=== PATIENT | female | born 1945 | race Caucasian/White ===

== ENCOUNTER 2017-02-01 16:27 | Inpatient (IN) | payer OTHER ==
[~2017-02-01] VITALS: Ht 167.6 cm; Wt 95.5 kg
[~2017-02-01 16:27] MED LIST: AMLO-114 PO; ASPI-232 PO; CALC500C70 PO; CLOP1TAB15 PO; HYDR25TA4 PO; INSUINJ4 SQ; LABE1TAB28 PO; LISI40TA PO; LORA0.5T12 PO; NVLGI SC; PANT1TAB48 PO; ROSU20TA PO
[2017-02-01] MEDS ORDERED: DAPTOmycin IV 500 MG in SODIUM CHLORIDE 0.9% 50ML 50 ML IV STA (17:11)
[2017-02-01] MEDS ORDERED: SODIUM CHLORIDE 0.9% 1000ML 1,000 ML IV STA ×2 (17:11)
[2017-02-01] MEDS ORDERED: PIPERACILLIN/TAZOBACTAM 4.5 GM/100ML D5W IV STA (17:11)
[2017-02-01] MEDS ORDERED: VANCOMYCIN INJ 2,000 MG in SODIUM CHLORIDE 0.9% 500ML 500 ML IV STA (17:21)
--- NOTE | 2017-02-01 17:32 | DIAGNOSTIC IMAGING REPORT ---
CHEST ONE VIEW PORTABLE CLINICAL HISTORY: EVALUATE WEAKNESS dyspnea COMPARISON STUDY: None FINDINGS: Consolidative infiltrate versus mass right midlung. Right lung base and right apex are considered clear. Left lung is considered clear. IMPRESSION: Consolidative infiltrate versus mass right midlung. Electronically signed by: aFm Mao M.D. 02/01/2017 5:30 PM Dictated Date/Time: 02/01/2017 5:30 PM
[2017-02-01 17:37] LABS: BASO % 0.2 %; BASO ABS # 0.03 K/uL (0-0.2); COMPLETE YES; HEMATOCRIT 29.4 % (37-47); IG% 0.3 %; LYMPH % 4.7 %; LYMPH ABS # 0.58 K/uL (1.2-3.4); MEAN CELL VOLUME 86.7 fL (80-100); MEAN CORPUSCULAR HEMOGLOBIN 28.9 pg (25-34); MEAN CORPUSCULAR HGB CONC 33.3 g/dl (32-36); MEAN PLATELET VOLUME 10.6 fL (7.4-10.4); MONO % 10.2 %; NEUT % 84.6 %; PLATELET COUNT 205 K/uL (130-400); RED BLOOD COUNT 3.39 M/uL (4.2-5.4); WHITE BLOOD COUNT 12.39 K/uL (4.8-10.8)
[2017-02-01 17:44] LABS: INR 1.1 (0.9-1.1); PARTIAL THROMBOPLASTIN RATIO 1.3; PROTHROMBIN TIME (PATIENT) 11.6 SECONDS (9.0-12.0)
[2017-02-01] MEDS ORDERED: INSDGI SC (18:04)
[2017-02-01] MEDS ORDERED: NVLG PO (18:04)
[2017-02-01] MEDS ORDERED: ACET-1311 PO (18:04)
[2017-02-01] MEDS ORDERED: NVLG SQ (18:04)
[2017-02-01 18:05] LABS: URINE APPEARANCE CLOUDY (CLEAR); URINE BILIRUBIN NEG (NEG); URINE COLOR DK YELLOW; URINE EPITHELIAL CELL AUTO 20-30 /lpf (0-5); URINE NITRITE NEG (NEG); URINE SPECIFIC GRAVITY 1.021 (1.000-1.030); UROBILINOGEN NEG (NEG)
[2017-02-01 18:10] LABS: ALT/SGPT 30 U/L (12-78); BLOOD UREA NITROGEN 37 mg/dl (7-18); BUN/CREATININE RATIO 15.9 (10-20); CALCIUM 8.9 mg/dl (8.5-10.1); CARBON DIOXIDE 24 mmol/L (21-32); CHLORIDE 98 mmol/L (98-107); GLUCOSE 214 mg/dl (70-99); MAGNESIUM 1.7 mg/dl (1.8-2.4); POTASSIUM 3.5 mmol/L (3.5-5.1); SODIUM 133 mmol/L (136-145)
[2017-02-01 18:13] LABS: MANUAL MICROSCOPIC REQUIRED? NO; REVIEW REQ? YES
[2017-02-01 18:20] LABS: ALKALINE PHOSPHATASE 98 U/L (45-117); AST/SGOT 25 U/L (15-37); THYROID STIMULATING HORMONE 0.191 uIu/ml (0.300-4.500)
--- NOTE | 2017-02-01 18:34 | DIAGNOSTIC IMAGING REPORT ---
ABDOMEN AND PELVIS CT WITHOUT CONTRAST CT DOSE: 1602.53 mGy.cm HISTORY: Left flank pain left groin pain, urinary symptoms TECHNIQUE: Multiaxial CT images of the abdomen and pelvis were performed without the use of intravenous and oral contrast according to the standard department stone protocol. COMPARISON STUDY: None. FINDINGS: Lung bases are clear. Liver spleen and pancreas appear uniform. Gallbladder is negative for distention. There are several calcified upper abdominal varices. The kidneys demonstrate a 3 mm nonobstructing calcification in the right. There is no evidence for an obstructing urinary tract calculus. There is atherosclerotic change abdominal aorta as well as iliac vasculature. A significant aneurysm is not appreciated. Bladder is midline. Bowel pattern is nonobstructive throughout. The appendix is normal. IMPRESSION: No acute process of the abdomen or pelvis. Electronically signed by: Fam Mao M.D. 02/01/2017 6:33 PM Dictated Date/Time: 02/01/2017 6:29 PM
[2017-02-01] MEDS ORDERED: LEVAQUIN 750MG / 150ML D5W IV STA (18:51)
[2017-02-01] MEDS ORDERED: DILTIAZEM BOLUS / DRIP IV STA (18:56)
[2017-02-01] MEDS ORDERED: DILTIAZEM HCL 5 MG/ML 5 ML VIAL IV STA (18:56)
[2017-02-01] MEDS ORDERED: DILTIAZEM HCL INJ 125 MG in DEXTROSE 5% 100ML IV PRN (19:15)
[2017-02-01] MEDS ORDERED: LPT40 PO (20:10)
[2017-02-01] MEDS ORDERED: CALC-585 PO (20:13)
[2017-02-01] MEDS ORDERED: DEXTROSE 50% 50 ML SYR IV PRN (20:30)
[2017-02-01] MEDS ORDERED: GLUCOSE 40% GEL 15 GM TUBE PO PRN (20:30)
[2017-02-01] MEDS ORDERED: GLUCOSE 10 TABS/TUBE PO PRN (20:30)
[2017-02-01] MEDS ORDERED: GLUCAGON FOR INJ 1 MG VIAL SQ PRN (20:30)
--- NOTE | 2017-02-01 20:39 | EMERGENCY ROOM VISIT NOTE ---
History Report prepared by Ilya: Nam Wiggins Under the Supervision of: Dr. Brandyn Higginbotham M.D. First contact with patient: 16:54 Chief Complaint: FEVER Stated Complaint: COLD AT TIMES History of Present Illness The patient is a 71 year old female who presents to the Emergency Room with complaints of a persistent illness that started 4 days ago. The patient says that she has had intermittent chills with a fever. She adds that she has had a little cough, and some pain in her left leg, which she rates as a 5 out of 10 in severity. The patient states that she has not been urinating as much as she should be, especially since she has been drinking a lot of water. 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 She had stents placed in her leg. The patient took 2 Aleve a few days ago. Pt denies LOC , headache, diaphoresis, visual changes, neck pain, chest pain, breathing difficulties, nausea, vomiting, abdominal pain, melena, hematochezia, numbness, weakness, lymphadenopathy, rash, or other complaints. Source of History: patient, family Onset: 4 days ago Position: other (global - illness) Timing: other (persistent) Associated Symptoms: + fevers, + chills, + cough, + back pain (low), + urinary symptoms (decreased urinary frequency) Note: Associated symptoms: Left leg pain. Review of Systems See HPI for pertinent positives and negatives. A total of ten systems were reviewed and were otherwise negative. Past Medical & Surgical Medical Problems: (1) Atrial fibrillation (2) Diabetes (3) Hypertension (4) Pneumonia Family History Diabetes mellitus FHx: cancer FHx: heart disease Hypertension Social History Smoking Status: Former Smoker Marital Status: Housing Status: lives with family Current/Historical Medications Scheduled Amlodipine (Norvasc), 10 MG PO DAILY Aspirin (Aspir-81), 1 TAB PO DAILY Atorvastatin (Atorvastatin Calcium), 40 MG PO DAILY Calcium Carbonate-Cholecalcife (Calcium 600 with Vitamin 600-400 mg-Unit), 1 TAB PO BID Clopidogrel (Plavix), 75 MG PO DAILY Hydrochlorothiazide (Hctz), 25 MG PO DAILY Insulin Aspart (Novolog), 10 UNITS SQ QDB Insulin Aspart (Novolog), UNITS PO UD Insulin Glargine (Lantus), 50 UNITS SC HS Labetalol (Normodyne), 200 MG PO BID Lisinopril (Zestril), 40 MG PO DAILY Pantoprazole (Protonix), 40 MG PO DAILY Scheduled PRN Acetaminophen (Tylenol), 325 MG PO Q6 PRN for Pain Allergies Coded Allergies: No Known Allergies (Unverified , 02/01/17) Physical Exam Vital Signs Date Time Temp Pulse Resp B/P (MAP) Pulse Ox O2 Delivery O2 Flow Rate FiO2 02/01/17 20:08 105 18 98 Nasal Cannula 2.0 02/01/17 19:22 105 16 116/61 95 Nasal Cannula 2.0 02/01/17 19:08 96 Nasal Cannula 2.0 02/01/17 18:54 136 02/01/17 18:48 153 02/01/17 17:55 92 02/01/17 17:54 92 16 142/53 91 Room Air 02/01/17 17:34 93 Room Air 02/01/17 16:30 39.5 96 20 133/65 91 Physical Exam GENERAL: Awake, alert, well-appearing, in no distress HENT: Normocephalic, atraumatic. Oropharynx unremarkable. EYES: Normal conjunctiva. Sclera non-icteric. NECK: Supple. No nuchal rigidity. FROM. No JVD. RESPIRATORY: Clear to auscultation. CARDIAC: Regular rate, normal rhythm. Extremities warm and well perfused. Pulses equal. ABDOMEN: Soft, non-distended. No tenderness to palpation. No rebound or guarding. No masses. RECTAL: Deferred. MUSCULOSKELETAL: Chest examination reveals no tenderness. The back is symmetrical on inspection without obvious abnormality. There is no CVA tenderness to palpation. No joint edema. LOWER EXTREMITIES: Left groin tenderness, no induration or swelling. Calves are equal size bilaterally and non-tender. No edema. No discoloration. NEURO: Normal sensorium. No sensory or motor deficits noted. SKIN: No rash or jaundice noted. Medical Decision & Procedures ER Provider Diagnostic Interpretation: Radiology results as stated below per my review and radiologist interpretation: CHEST ONE VIEW PORTABLE CLINICAL HISTORY: EVALUATE WEAKNESS dyspnea COMPARISON STUDY: None FINDINGS: Consolidative infiltrate versus mass right midlung. Right lung base and right apex are considered clear. Left lung is considered clear. IMPRESSION: Consolidative infiltrate versus mass right midlung. Electronically signed by: Fam Mao M.D. 02/01/2017 5:30 PM Dictated Date/Time: 02/01/2017 5:30 PM [address] AND PELVIS CT WITHOUT CONTRAST CT DOSE: 1602.53 mGy.cm HISTORY: Left flank pain left groin pain, urinary symptoms TECHNIQUE: Multiaxial CT images of the abdomen and pelvis were performed without the use of intravenous and oral contrast according to the standard department stone protocol. COMPARISON STUDY: None. FINDINGS: Lung bases are clear. Liver spleen and pancreas appear uniform. Gallbladder is negative for distention. There are several calcified upper abdominal varices. The kidneys demonstrate a 3 mm nonobstructing calcification in the right. There is no evidence for an obstructing urinary tract calculus. There is atherosclerotic change abdominal aorta as well as iliac vasculature. A significant aneurysm is not appreciated. Bladder is midline. Bowel pattern is nonobstructive throughout. The appendix is normal. IMPRESSION: No acute process of the abdomen or pelvis. Electronically signed by: Fam Mao M.D. 02/01/2017 6:33 PM Dictated Date/Time: 02/01/2017 6:29 PM Laboratory Results 02/01/17 17:20 Red Blood Count 3.39, Mean Corpuscular Volume 86.7, Mean Corpuscular Hemoglobin 28.9, Mean Corpuscular Hemoglobin Concent 33.3, Mean Platelet Volume 10.6, Neutrophils (%) (Auto) 84.6, Lymphocytes (%) (Auto) 4.7, Monocytes (%) (Auto) 10.2, Eosinophils (%) (Auto) 0.0, Basophils (%) (Auto) 0.2, Neutrophils # (Auto ) 10.48, Lymphocytes # (Auto) 0.58, Monocytes # (Auto) 1.26, Eosinophils # (Auto ) 0.00, Basophils # (Auto) 0.03 02/01/17 17:20 Test 02/01/17 17:20 02/01/17 17:24 02/01/17 17:40 White Blood Count 12.39 K/uL (4.8-10.8) Red Blood Count 3.39 M/uL (4.2-5.4) Hemoglobin 9.8 g/dL (12.0-16.0) Hematocrit 29.4 % (37-47) Mean Corpuscular Volume 86.7 fL (80-100) Mean Corpuscular Hemoglobin 28.9 pg (25-34) Mean Corpuscular Hemoglobin Concent 33.3 g/dl (32-36) Platelet Count 205 K/uL (130-400) Mean Platelet Volume 10.6 fL (7.4-10.4) Neutrophils (%) (Auto) 84.6 % Lymphocytes (%) (Auto) 4.7 % Monocytes (%) (Auto) 10.2 % Eosinophils (%) (Auto) 0.0 % Basophils (%) (Auto) 0.2 % Neutrophils # (Auto) 10.48 K/uL (1.4-6.5) Lymphocytes # (Auto) 0.58 K/uL (1.2-3.4) Monocytes # (Auto) 1.26 K/uL (0.11-0.59) Eosinophils # (Auto) 0.00 K/uL (0-0.5) Basophils # (Auto) 0.03 K/uL (0-0.2) RDW Standard Deviation 45.5 fL (36.4-46.3) RDW Coefficient of Variation 14.3 % (11.5-14.5) Immature Granulocyte % (Auto) 0.3 % Immature Granulocyte # (Auto) 0.04 K/uL (0.00-0.02) Prothrombin Time 11.6 SECONDS (9.0-12.0) Prothromb Time International Ratio 1.1 (0.9-1.1) Activated Partial Thromboplast Time 33.6 SECONDS (21.0-31.0) Partial Thromboplastin Ratio 1.3 Anion Gap 11.0 mmol/L (3-11) Est Creatinine Clear Calc Drug Dose 25.9 ml/min Estimated GFR () 23.8 Estimated GFR (Non- 20.5 BUN/Creatinine Ratio 15.9 (10-20) Calcium Level 8.9 mg/dl (8.5-10.1) Magnesium Level 1.7 mg/dl (1.8-2.4) Total Bilirubin 1.6 mg/dl (0.2-1) Direct Bilirubin 0.6 mg/dl (0-0.2) Aspartate Amino Transf (AST/SGOT) 25 U/L (15-37) Alanine Aminotransferase (ALT/SGPT) 30 U/L (12-78) Alkaline Phosphatase 98 U/L (45-117) Troponin I < 0.015 ng/ml (0-0.045) Total Protein 7.0 gm/dl (6.4-8.2) Albumin 3.1 gm/dl (3.4-5.0) Lipase 124 U/L (73-393) Thyroid Stimulating Hormone (TSH) 0.191 uIu/ml (0.300-4.500) Bedside Lactic Acid Venous 0.76 mmol/L (0.90-1.70) Urine Color DK YELLOW Urine Appearance CLOUDY (CLEAR) Urine pH 5.0 (4.5-7.5) Urine Specific [place] 1.021 (1.000-1.030) Urine Protein 2+ (NEG) Urine Glucose (UA) NEG (NEG) Urine Ketones NEG (NEG) Urine Occult Blood 2+ (NEG) Urine Nitrite NEG (NEG) Urine Bilirubin NEG (NEG) Urine Urobilinogen NEG (NEG) Urine Leukocyte Esterase NEG (NEG) Urine WBC (Auto) 1-5 /hpf (0-5) Urine RBC (Auto) 0-4 /hpf (0-4) Urine Hyaline Casts (Auto) 5-10 /lpf (0-5) Urine Epithelial Cells (Auto) 20-30 /lpf (0-5) Urine Bacteria (Auto) NEG (NEG) Urine Yeast (Auto) (NONE PRSENT) Laboratory results reviewed by me Medications Administered Medications (Trade) Dose Ordered Sig/Dayron Route Start Time Stop Time Status Last Admin Dose Admin Sodium Chloride 1,000 ml @ 125 mls/hr Q8H STAT IV 02/01/17 17:11 02/02/17 01:10 02/01/17 17:30 125 MLS/HR Sodium Chloride 1,000 ml @ 999 mls/hr Q1H1M STAT IV 02/01/17 17:11 02/01/17 18:11 DC 02/01/17 17:29 999 MLS/HR Piperacillin Sod/ Tazobactam Sod (Zosyn Iv) 4.5 gm NOW STAT IV 02/01/17 17:11 02/01/17 17:14 DC 02/01/17 17:31 4.5 GM Vancomycin HCl 2000 mg/Sodium Chloride 540 ml @ 200 mls/hr ONE STAT IV 02/01/17 17:21 02/01/17 20:02 DC 02/01/17 17:21 200 MLS/HR Diltiazem HCl (Cardizem Inj) 10 mg NOW STAT IV 02/01/17 18:56 02/01/17 18:58 DC 02/01/17 19:16 10 MG Diltiazem HCl (Cardizem Bolus / Drip) 1 ea NOW STAT IV 02/01/17 18:56 02/01/17 18:58 DC 02/01/17 18:56 1 EA Diltiazem HCl 125 mg/Dextrose 125 ml @ 0 mls/hr Q0M PRN IV 02/01/17 19:15 03/03/17 19:14 02/01/17 19:19 5 MLS/HR ECG Indication: other (fever) Rate (beats per minute): 96 Rhythm: sinus rhythm (with sinus arrhythmia) Findings: no acute ischemic change, other (nonspecific ST segments) Change: Second ECG: Atrial fibrillation with RVR with a rate of 138 bpm, lateral q waves. When compared to prior, atrial fibrillation is new. ED Course 1711: Ordered Daptomycin 500 mg/Sodium Chloride 60 ml @ 100 mls/hr IV, Zosyn IV 4.5 gm IV, NSS 1000 ml @ 999 mls/hr IV, NSS 1000 ml @ 125 mls/hr IV. 1716: The patient was evaluated in room B4B. A complete history and physical exam was performed. 1721: Ordered Vancomycin HCl 2000 mg/Sodium Chloride 540 ml @ 200 mls/hr IV. 1850: The monitor tech notified me that the patient just went into rapid atrial fibrillation. 1851: Ordered Levaquin / D5W 750 mg IV. 1852: I reevaluated the patient and she is resting. The patient verbally expressed understanding and agreement of the treatment plan. The patient will be evaluated for further treatment. 185: Ordered Cardizem Bolus / Drip 1 ea IV, Cardizem Inj 10 mg IV. 1912: I discussed the patient with Nancy Mac - she will evaluate the patient for further treatment. 1926: I reevaluated the patient after she was given Cardizem. Her heart rate has improved and she is stable. Medical Decision Medication Reconciliation: I attest that I have personally reviewed the patient' s current medication list Blood pressure screening: Patient was found to have an elevated blood pressure and was referred to their primary doctor for recheck and further treatment. Triage Nursing notes reviewed. The patient's presentation and history were concerning for fever. Etiologies such as pneumonia, urinary tract infection, sepsis, bacteremia, meningitis, viral syndrome, as well as others were entertained. The patient was evaluated. She was febrile. She complained of some right groin pain that there was no obvious abnormalities on physical examination. She also noted some urinary issues and had some flulike symptoms. Chest x-ray was concerning for right-sided infiltrate. The patient had a 12,000 white count. Her creatinine was elevated from baseline to 2.3. This was concerning for acute kidney injury. She had a mildly low TSH and her bilirubin functions mildly elevated. The patient underwent CT imaging did not reveal any findings in the abdomen or pelvis. She was given Zosyn and daptomycin. The patient was found to have developed a rapid atrial fibrillation. She was also requiring supplemental oxygen with a pulse oximetry of 80% on room air. The patient responded well to supplemental oxygen. She was given a dose of IV Levaquin and Cardizem. She was given 10 mg Cardizem and placed on a drip. This did achieve rate control. The patient was doing quite well given the findings. She will need admission to the hospital. [facility] The patient was evaluated in the Emergency Room for further management. Consults Time Called: 1907 Consulting Physician: Nancy Mac Returned Call: 1912 I discussed the patient with Nancy Mac - she will evaluate the patient for further treatment. Impression Primary Impression: Pneumonia involving right lung Additional Impressions: KEILA (acute kidney injury) Rapid atrial fibrillation Fever Critical Care I have personally spent greater than 30 minutes of critical care time in the direct management of this patient. This includes bedside care, interpretation of diagnostic studies, and testing, discussion with consultants, patient, and family members, and other required patient management activities. This 30 minutes is in excess of all separately billable procedures. Scribe Attestation The scribe's documentation has been prepared under my direction and personally reviewed by me in its entirety. I confirm that the note above accurately reflects all work, treatment, procedures, and medical decision making performed by me. Departure Information Dispostion Being Evaluated By Hospitalist Referrals Jose C Roth D.O. (PCP) Patient Instructions My [facility] Problem Qualifiers
[2017-02-01 20:59] VITALS: BP 121/75; PULSE 120; TEMP 37.3; O2SAT 93; BMI 34.8
[2017-02-01] MEDS ORDERED: HEPARIN IV BOLUS 6,000 UNIT in SYRINGE 0 ML IV ONE (21:30)
[2017-02-01] MEDS: ACETAMINOPHEN 325 MG TAB PO PRN (21:50)
[2017-02-01] MEDS: MAGNESIUM SULFATE 1GM / D5W 1 GM in PREMIXED IN D5W 100 ML IV SCH ×2 (21:51→22:30)
[2017-02-01] MEDS: CALCIUM 600MG + VIT D 400 IU TAB PO SCH (21:51)
[2017-02-01] MEDS: LABETALOL HCL 200 MG TAB PO SCH (21:52)
--- NOTE | 2017-02-01 21:52 | History and Physical ---
History & Physical Date & Time of Service: Feb 01, 2017 at 20:18 Chief Complaint: Cold At Times Primary Care Physician: Jose C Roth D.O. History of Present Illness Source: patient, partner, clinic records 71 year old female with PMH of DM type 2, CKD stage 3, HTN, PVD, Carotid Stenosis presents to the Emergency Room with complaints of fever, chills that started about 4 days ago. Pt said that she has been feeling weak with no energy for the past few days. She said that she has been having a dry cough. she said that she has been having SOB on exertion. She also had some pain in her left leg where she had MRSA in her artery that is resolved now. She notice her urinary output seems to be low, especially since she has been drinking a lot of water. She denies any sick contact or any recent travelling. She denies any chest pain, palpitation, headache, diaphoresis , visual changes, neck pain, nausea, vomiting, abdominal pain, melena, hematochezia, numbness, weakness, lymphadenopathy, rash. She went to Atrial Fibrillation in the ER with HR in the 150 and was started on Cardizem drip. Past Medical/Surgical History Medical Problems: (1) Diabetes Status: Chronic (2) Hypertension Status: Chronic Family History Diabetes mellitus FHx: cancer FHx: heart disease Hypertension Social History Smoking Status: Former Smoker Alcohol Use: none Drug Use: none Marital Status: Immunizations History of Pneumococcal: Yes Multi-Drug Resistant Organisms History of MDRO: No Allergies Coded Allergies: No Known Allergies (Unverified , 02/01/17) Home Medications Scheduled Amlodipine (Norvasc), 10 MG PO DAILY Aspirin (Aspir-81), 1 TAB PO DAILY Atorvastatin (Atorvastatin Calcium), 40 MG PO DAILY Calcium Carbonate-Cholecalcife (Calcium 600 with Vitamin 600-400 mg-Unit), 1 TAB PO BID Clopidogrel (Plavix), 75 MG PO DAILY Hydrochlorothiazide (Hctz), 25 MG PO DAILY Insulin Aspart (Novolog), 10 UNITS SQ QDB Insulin Aspart (Novolog), UNITS PO UD Insulin Glargine (Lantus), 50 UNITS SC HS Labetalol (Normodyne), 200 MG PO BID Lisinopril (Zestril), 40 MG PO DAILY Pantoprazole (Protonix), 40 MG PO DAILY Scheduled PRN Acetaminophen (Tylenol), 325 MG PO Q6 PRN for Pain Review of Systems Constitutional: + fever, + chills, + weakness, + fatigue Eyes: No worsening of vision, No eye pain, No discharge ENT: No hearing loss, No nasal symptoms, No sore throat Respiratory: + cough, + dyspnea on exertion, No sputum, No wheezing Cardiovascular: No chest pain, No orthopnea, No palpitations Abdomen: No pain, No nausea, No vomiting, No diarrhea Musculoskeletal: No swelling, No calf pain Genitourinary - Female: No dysuria, No urinary frequency, No hematuria Neurologic: + weakness, No memory loss, No paralysis Psychiatric: No substance abuse Endocrine: + fatigue Hematologic / Lymphatic: No swollen lymph nodes, No night sweats Integumentary: No rash, No itch Physical Exam Vital Signs Date Time Temp Pulse Resp B/P (MAP) Pulse Ox O2 Delivery O2 Flow Rate FiO2 02/01/17 20:08 105 18 98 Nasal Cannula 2.0 02/01/17 19:22 105 16 116/61 95 Nasal Cannula 2.0 02/01/17 19:08 96 Nasal Cannula 2.0 02/01/17 18:54 136 02/01/17 18:48 153 02/01/17 17:55 92 02/01/17 17:54 92 16 142/53 91 Room Air 02/01/17 17:34 93 Room Air 02/01/17 16:30 39.5 96 20 133/65 91 General Appearance: WD/WN, no apparent distress Head: normocephalic, atraumatic Eyes: normal inspection, PERRL, EOMI ENT: normal ENT inspection, hearing grossly normal Neck: no JVD, + pertinent finding (B/L carotid Bruit) Respiratory/Chest: chest non-tender, no respiratory distress, no accessory muscle use Cardiovascular: no JVD, + irregularly irregular Abdomen/GI: normal bowel sounds, non tender, soft Back: no CVA tenderness, normal range of motion Extremities/Musculoskelatal: no calf tenderness Neurologic/Psych: alert, normal mood/affect, oriented x 3 Skin: warm/dry, no rash Diagnostics Laboratory Results Results Past 24 Hours Test 02/01/17 17:20 02/01/17 17:24 02/01/17 17:40 Range/Units White Blood Count 12.39 4.8-10.8 K/uL Red Blood Count 3.39 4.2-5.4 M/uL Hemoglobin 9.8 12.0-16.0 g/dL Hematocrit 29.4 37-47 % Mean Corpuscular Volume 86.7 80-100 fL Mean Corpuscular Hemoglobin 28.9 25-34 pg Mean Corpuscular Hemoglobin Concent 33.3 32-36 g/dl Platelet Count 205 130-400 K/uL Mean Platelet Volume 10.6 7.4-10.4 fL Neutrophils (%) (Auto) 84.6 % Lymphocytes (%) (Auto) 4.7 % Monocytes (%) (Auto) 10.2 % Eosinophils (%) (Auto) 0.0 % Basophils (%) (Auto) 0.2 % Neutrophils # (Auto) 10.48 1.4-6.5 K/uL Lymphocytes # (Auto) 0.58 1.2-3.4 K/uL Monocytes # (Auto) 1.26 0.11-0.59 K/uL Eosinophils # (Auto) 0.00 0-0.5 K/uL Basophils # (Auto) 0.03 0-0.2 K/uL RDW Standard Deviation 45.5 36.4-46.3 fL RDW Coefficient of Variation 14.3 11.5-14.5 % Immature Granulocyte % (Auto) 0.3 % Immature Granulocyte # (Auto) 0.04 0.00-0.02 K/uL Prothrombin Time 11.6 9.0-12.0 SECONDS Prothromb Time International Ratio 1.1 0.9-1.1 Activated Partial Thromboplast Time 33.6 21.0-31.0 SECONDS Partial Thromboplastin Ratio 1.3 Sodium Level 133 136-145 mmol/L Potassium Level 3.5 3.5-5.1 mmol/L Chloride Level 98 98-107 mmol/L Carbon Dioxide Level 24 21-32 mmol/L Anion Gap 11.0 3-11 mmol/L Blood Urea Nitrogen 37 7-18 mg/dl Creatinine 2.30 0.60-1.20 mg/dl Est Creatinine Clear Calc Drug Dose 25.9 ml/min Estimated GFR () 23.8 Estimated GFR (Non- 20.5 BUN/Creatinine Ratio 15.9 10-20 Random Glucose 214 70-99 mg/dl Calcium Level 8.9 8.5-10.1 mg/dl Magnesium Level 1.7 1.8-2.4 mg/dl Total Bilirubin 1.6 0.2-1 mg/dl Direct Bilirubin 0.6 0-0.2 mg/dl Aspartate Amino Transf (AST/SGOT) 25 15-37 U/L Alanine Aminotransferase (ALT/SGPT) 30 12-78 U/L Alkaline Phosphatase 98 45-117 U/L Troponin I < 0.015 0-0.045 ng/ml Total Protein 7.0 6.4-8.2 gm/dl Albumin 3.1 3.4-5.0 gm/dl Lipase 124 73-393 U/L Thyroid Stimulating Hormone (TSH) 0.191 0.300-4.500 uIu/ml Bedside Lactic Acid Venous 0.76 0.90-1.70 mmol/L Urine Color DK YELLOW Urine Appearance CLOUDY CLEAR Urine pH 5.0 4.5-7.5 Urine Specific [place] 1.021 1.000-1.030 Urine Protein 2+ NEG Urine Glucose (UA) NEG NEG Urine Ketones NEG NEG Urine Occult Blood 2+ NEG Urine Nitrite NEG NEG Urine Bilirubin NEG NEG Urine Urobilinogen NEG NEG Urine Leukocyte Esterase NEG NEG Urine WBC (Auto) 1-5 0-5 /hpf Urine RBC (Auto) 0-4 0-4 /hpf Urine Hyaline Casts (Auto) 5-10 0-5 /lpf Urine Epithelial Cells (Auto) 20-30 0-5 /lpf Urine Bacteria (Auto) NEG NEG Urine Yeast (Auto) NONE PRSENT Microbiology Results 02/01/17 Blood Culture, Received Pending 02/01/17 Blood Culture, Received Pending 02/01/17 Urine Culture, Received Pending Diagnostic Radiology ABDOMEN AND PELVIS CT WITHOUT CONTRAST CT DOSE: 1602.53 mGy.cm HISTORY: Left flank pain left groin pain, urinary symptoms TECHNIQUE: Multiaxial CT images of the abdomen and pelvis were performed without the use of intravenous and oral contrast according to the standard department stone protocol. COMPARISON STUDY: None. FINDINGS: Lung bases are clear. Liver spleen and pancreas appear uniform. Gallbladder is negative for distention. There are several calcified upper abdominal varices. The kidneys demonstrate a 3 mm nonobstructing calcification in the right. There is no evidence for an obstructing urinary tract calculus. There is atherosclerotic change abdominal aorta as well as iliac vasculature. A significant aneurysm is not appreciated. Bladder is midline. Bowel pattern is nonobstructive throughout. The appendix is normal. IMPRESSION: No acute process of the abdomen or pelvis. Electronically signed by: Fam Mao M.D. 02/01/2017 6:33 PM Dictated Date/Time: 02/01/2017 6:29 PM CHEST ONE VIEW PORTABLE CLINICAL HISTORY: EVALUATE WEAKNESS dyspnea COMPARISON STUDY: None FINDINGS: Consolidative infiltrate versus mass right midlung. Right lung base and right apex are considered clear. Left lung is considered clear. IMPRESSION: Consolidative infiltrate versus mass right midlung. Electronically signed by: Fam Mao M.D. 02/01/2017 5:30 PM Dictated Date/Time: 02/01/2017 5:30 PM Impression Assessment and Plan NEW ONSET ATRIAL FIBRILLATION possible related to electrolytes imbalance, acute illness or thyroid disorder? Received IV Cardizem and was started on Cardizem drip CDF3BA2-ABSH score 5 (age, female, DM, HTN, PVD) Heparin drip was started 1st troponin negative Will Follow 2 more sets CM Case discussed with Cardiology Dr. Singleton who will evaluate pt in am. Will continue monitor in Telemetry Continue labetalol monitor electrolytes Nuclear stress test done on 04/27 was normal Dobutamine stress echo done on 04/27 showed: Interpretation Summary The primary indication after review was deemed appropriate and the examination was performed. Nondiagnostic dobutamine stress echocardiogram due to inability to achieve target heart rate. Nonischemic at 78% max predicted heart rate. Hypertensive BP response to dobutamine infusion. At rest, normal LV chamber size with mild concentric LVH. Normal LV systolic function without regional wall motion abnormality, EF 60-65%. Grade I diastolic dysfunction. Mild aortic valve sclerosis without stenosis, mild regurgitation. Mild mitral annular calcifications. Mild enlargement of the aortic root. PNEUMONIA CXR showed Consolidative infiltrate versus mass right midlung Received IV Vanco, Zosyn, levaquin and Dapto in the ER Will continue levaquin and Vanco for now If MRSA negative will d/c the vanco blood and urine cx pending Will need a CT chest in a few weeks for complete resolution ACUTE KEILA ON CKD STAGE 3 Creatine was 1.2 on 12/12/16 Creatine on admission 2.3 Lisinopril and HCTZ on hold Continue IVF Avoid nephrotoxic agents Will get a renal U/S if creatine worsening Continue monitor BMP ELECTROLYTES IMBALANCE Mg 1.7 Mg replaced keep Mg above 2 and K above 4. continue monitor ABNORMAL TSH Possible related to acute illness Will check Free T4 and Total T3 Repeat TSH in few weeks DM TYPE 2 HBA1C 6.5 on 12/12/16- Controlled Continue Lantus ( will decrease to 35 unit for tonight since pt is in the hospital) Insulin coverage Monitor BS HTN BP stable Hold Lisinopril and HCTZ due to KEILA Continue Norvasc 10mg monitor BP PVD CAROTID ARTERY STENOSIS Continue Plavix/ Aspirin/ Statin DYSLIPIDEMIA Continue Lipitor 40mg DVT Px on Heparin Drip CODE STATUS FULL CODE VTE Prophylaxis VTE Risk Assessment Done? Y/N: Yes Risk Level: Moderate
[2017-02-01] MEDS: INSULIN ASPART 100 UNITS/ML 3 ML PEN SC SCH (21:56)
[2017-02-01] MEDS: INSULIN GLARGINE SOLOSTAR 100 UNITS/ML 3 ML PEN SC SCH (21:57)
[2017-02-01] MEDS: HEPARIN 25,000 UNIT/500ML D5W 500 ML IV PRN (21:58)
[2017-02-01] MEDS ORDERED: SODIUM CHLORIDE 0.9% 1000ML 1,000 ML IV SCH (22:30)
[2017-02-01 23:00] VITALS: BP 132/50; PULSE 97; TEMP 38.3; O2SAT 94
[2017-02-01] MEDS ORDERED: VANCOMYCIN CONSULT ACTIVE PRN (23:00)
[2017-02-02] VITALS (12 sets, daily range): BP systolic 110–137; BP diastolic 56–72; PULSE 69–90; TEMP 36.9–37.7; O2SAT 87–97
[2017-02-02] MEDS ORDERED: LORAZEPAM 0.5 MG TAB ONE (00:20)
[2017-02-02] MEDS ORDERED: NURSING VERBAL MED ORDER ONE (00:30)
[2017-02-02 06:50] LABS: HEMATOCRIT 25.6 % (37-47); MEAN CELL VOLUME 87.1 fL (80-100); MEAN CORPUSCULAR HEMOGLOBIN 28.6 pg (25-34); MEAN CORPUSCULAR HGB CONC 32.8 g/dl (32-36); MEAN PLATELET VOLUME 9.9 fL (7.4-10.4); PLATELET COUNT 180 K/uL (130-400); RED BLOOD COUNT 2.94 M/uL (4.2-5.4); WHITE BLOOD COUNT 9.46 K/uL (4.8-10.8)
[2017-02-02 07:10] LABS: PARTIAL THROMBOPLASTIN RATIO 3.6
[2017-02-02 07:24] LABS: ALT/SGPT 29 U/L (12-78); BLOOD UREA NITROGEN 39 mg/dl (7-18); BUN/CREATININE RATIO 17.5 (10-20); CALCIUM 8.3 mg/dl (8.5-10.1); CARBON DIOXIDE 22 mmol/L (21-32); CHLORIDE 100 mmol/L (98-107); GLUCOSE 213 mg/dl (70-99); MAGNESIUM 2.3 mg/dl (1.8-2.4); POTASSIUM 3.2 mmol/L (3.5-5.1); SODIUM 135 mmol/L (136-145)
[2017-02-02 07:29] LABS: ALB/GLOB RATIO 0.7 (0.9-2); ALKALINE PHOSPHATASE 84 U/L (45-117); AST/SGOT 29 U/L (15-37)
[2017-02-02] MEDS: CALCIUM 600MG + VIT D 400 IU TAB PO SCH ×2 (07:30→21:03)
[2017-02-02] MEDS ORDERED: INSULIN ASPART 100 UNITS/ML 3 ML PEN SQ SCH (07:30)
[2017-02-02] MEDS: LABETALOL HCL 200 MG TAB PO SCH (07:30)
[2017-02-02] MEDS: AMLODIPINE BESYLATE 5 MG TAB PO SCH (07:31)
[2017-02-02] MEDS: CLOPIDOGREL BISULFATE 75 MG TAB PO SCH (07:31)
[2017-02-02] MEDS: ATORVASTATIN 40 MG TAB PO SCH (07:31)
[2017-02-02] MEDS: ASPIRIN 81 MG ECTAB PO SCH (07:31)
[2017-02-02] MEDS: PANTOprazole SOD 40 MG TAB PO SCH (07:32)
[2017-02-02] MEDS: INSULIN ASPART 100 UNITS/ML 3 ML PEN SC SCH ×4 (08:44→21:06)
[2017-02-02] MEDS ORDERED: POTASSIUM CHLORIDE 20 MEQ TABCR PO ONE (08:45)
--- NOTE | 2017-02-02 08:56 | Progress Note ---
Internal Med Progress Note Date of Service: Feb 02, 2017. Provider Documentation: SUBJECTIVE: Seen and examined at bedside. Reports feeling slightly better. Currently in sinus rhythm. Reports tiredness, dry cough and SOB on exertion. Denies chest pain, palpitations, dizziness. Denies any bleeding issues-hematuria, blood in stools. OBJECTIVE: Vital Signs-as noted below Physical Exam: General Appearance:Moderately built and nourished, no apparent distress Head: normocephalic, Atraumatic Eyes: normal inspection, EOMI, PERRL Neck: supple, Trachea midline +Carotid bruit Respiratory/Chest: Decreased breath sounds, b/l few crackles Cardiovascular: S1, S2, No murmur Abdomen/GI:Soft, Non tender, Bowel sounds present Extremities/Musculoskelatal:normal inspection, Trace edema Neurologic/Psych: grossly no focal neurological deficits Skin: normal color, warm Lab data as noted below. ASSESSMENT & PLAN: NEW ONSET ATRIAL FIBRILLATION Currently in sinus S/P Cardizem On Heparin drip Troponin X 3: Negative Cardiology consulted Continue labetalol monitor electrolytes Nuclear stress test on 04/27 was normal Dobutamine stress echo done on 04/27:Nondiagnostic dobutamine stress echocardiogram due to inability to achieve target heart rate. PNEUMONIA CXR showed Consolidative infiltrate versus mass right midlung Received IV Vanco, Zosyn, levaquin and Dapto in the ER Continue Levaquin MRSA screen negative. Will DC Vanco Follow up blood and urine cultures;pending Will get CT chest to r/o mass Former Smoker:quit in 2006 ANEMIA: Baseline Hb:9.8 >>>8.4 Likely dilutional secondary to IVF Check FOBT Monitor HH on Aspirin, plavix and Heparin ggt Denies any bleeding issues ACUTE KEILA ON CKD III Cr: 1.2 on 12/12/16 Cr 2.2 currently Lisinopril and HCTZ on hold Continue IVF Avoid nephrotoxic agents monitor renal function ELECTROLYTES IMBALANCE Mg 1.7>> 2.3 Potassium:3.2 Mg replaced keep Mg above 2 and K above 4. continue monitor Potassium replaced ABNORMAL TSH Possible related to acute illness Free T4: normal Total T3:pending Repeat TSH in few weeks DM II HBA1C 6.5 on 12/12/16- Controlled Continue Lantus Insulin coverage Monitor BS HTN stable Hold Lisinopril and HCTZ due to KEILA Continue Norvasc 10mg monitor BP PVD CAROTID ARTERY STENOSIS Continue Plavix/ Aspirin/ Statin DYSLIPIDEMIA Continue Lipitor DVT Px on Heparin Drip CODE STATUS FULL CODE Disposition: Monitor in Tele Vital Signs: Date Time Temp Pulse Resp B/P (MAP) Pulse Ox O2 Delivery O2 Flow Rate FiO2 02/02/17 07:06 37.2 72 20 117/56 (76) 87 Nasal Cannula 4.0 02/02/17 04:00 93 Nasal Cannula 2.0 02/02/17 03:05 36.9 69 19 110/57 (74) 91 Nasal Cannula 2.0 02/02/17 00:01 93 Nasal Cannula 2.0 02/01/17 23:00 38.3 97 22 132/50 (77) 94 Nasal Cannula 2.0 02/01/17 20:59 37.3 120 20 121/75 93 Nasal Cannula 2.0 02/01/17 20:42 125 16 109/48 96 02/01/17 20:08 105 18 98 Nasal Cannula 2.0 02/01/17 19:22 105 16 116/61 95 Nasal Cannula 2.0 02/01/17 19:08 96 Nasal Cannula 2.0 02/01/17 18:54 136 02/01/17 18:48 153 02/01/17 17:55 92 02/01/17 17:54 92 16 142/53 91 Room Air 02/01/17 17:34 93 Room Air 02/01/17 16:30 39.5 96 20 133/65 91 Lab Results: Results Past 24 Hours Test 02/01/17 17:20 02/01/17 17:24 02/01/17 17:40 02/01/17 21:22 Range/Units White Blood Count 12.39 4.8-10.8 K/uL Red Blood Count 3.39 4.2-5.4 M/uL Hemoglobin 9.8 12.0-16.0 g/dL Hematocrit 29.4 37-47 % Mean Corpuscular Volume 86.7 80-100 fL Mean Corpuscular Hemoglobin 28.9 25-34 pg Mean Corpuscular Hemoglobin Concent 33.3 32-36 g/dl Platelet Count 205 130-400 K/uL Mean Platelet Volume 10.6 7.4-10.4 fL Neutrophils (%) (Auto) 84.6 % Lymphocytes (%) (Auto) 4.7 % Monocytes (%) (Auto) 10.2 % Eosinophils (%) (Auto) 0.0 % Basophils (%) (Auto) 0.2 % Neutrophils # (Auto) 10.48 1.4-6.5 K/uL Lymphocytes # (Auto) 0.58 1.2-3.4 K/uL Monocytes # (Auto) 1.26 0.11-0.59 K/uL Eosinophils # (Auto) 0.00 0-0.5 K/uL Basophils # (Auto) 0.03 0-0.2 K/uL RDW Standard Deviation 45.5 36.4-46.3 fL RDW Coefficient of Variation 14.3 11.5-14.5 % Immature Granulocyte % (Auto) 0.3 % Immature Granulocyte # (Auto) 0.04 0.00-0.02 K/uL Prothrombin Time 11.6 9.0-12.0 SECONDS Prothromb Time International Ratio 1.1 0.9-1.1 Activated Partial Thromboplast Time 33.6 21.0-31.0 SECONDS Partial Thromboplastin Ratio 1.3 Sodium Level 133 136-145 mmol/L Potassium Level 3.5 3.5-5.1 mmol/L Chloride Level 98 98-107 mmol/L Carbon Dioxide Level 24 21-32 mmol/L Anion Gap 11.0 3-11 mmol/L Blood Urea Nitrogen 37 7-18 mg/dl Creatinine 2.30 0.60-1.20 mg/dl Est Creatinine Clear Calc Drug Dose 25.9 ml/min Estimated GFR () 23.8 Estimated GFR (Non- 20.5 BUN/Creatinine Ratio 15.9 10-20 Random Glucose 214 70-99 mg/dl Calcium Level 8.9 8.5-10.1 mg/dl Magnesium Level 1.7 1.8-2.4 mg/dl Total Bilirubin 1.6 0.2-1 mg/dl Direct Bilirubin 0.6 0-0.2 mg/dl Aspartate Amino Transf (AST/SGOT) 25 15-37 U/L Alanine Aminotransferase (ALT/SGPT) 30 12-78 U/L Alkaline Phosphatase 98 45-117 U/L Troponin I < 0.015 0-0.045 ng/ml Total Protein 7.0 6.4-8.2 gm/dl Albumin 3.1 3.4-5.0 gm/dl Lipase 124 73-393 U/L Thyroid Stimulating Hormone (TSH) 0.191 0.300-4.500 uIu/ml Bedside Lactic Acid Venous 0.76 0.90-1.70 mmol/L Urine Color DK YELLOW Urine Appearance CLOUDY CLEAR Urine pH 5.0 4.5-7.5 Urine Specific [place] 1.021 1.000-1.030 Urine Protein 2+ NEG Urine Glucose (UA) NEG NEG Urine Ketones NEG NEG Urine Occult Blood 2+ NEG Urine Nitrite NEG NEG Urine Bilirubin NEG NEG Urine Urobilinogen NEG NEG Urine Leukocyte Esterase NEG NEG Urine WBC (Auto) 1-5 0-5 /hpf Urine RBC (Auto) 0-4 0-4 /hpf Urine Hyaline Casts (Auto) 5-10 0-5 /lpf Urine Epithelial Cells (Auto) 20-30 0-5 /lpf Urine Bacteria (Auto) NEG NEG Urine Yeast (Auto) NONE PRSENT Bedside Glucose 279 70-90 mg/dl Test 02/01/17 23:12 02/02/17 06:17 02/02/17 06:37 Range/Units Creatine Kinase MB 3.5 0.5-3.6 ng/ml Creatine Kinase MB Ratio 0-3.0 Troponin I < 0.015 < 0.015 0-0.045 ng/ml Bedside Glucose 224 70-90 mg/dl White Blood Count 9.46 4.8-10.8 K/uL Red Blood Count 2.94 4.2-5.4 M/uL Hemoglobin 8.4 12.0-16.0 g/dL Hematocrit 25.6 37-47 % Mean Corpuscular Volume 87.1 80-100 fL Mean Corpuscular Hemoglobin 28.6 25-34 pg Mean Corpuscular Hemoglobin Concent 32.8 32-36 g/dl RDW Standard Deviation 47.1 36.4-46.3 fL RDW Coefficient of Variation 14.7 11.5-14.5 % Platelet Count 180 130-400 K/uL Mean Platelet Volume 9.9 7.4-10.4 fL Activated Partial Thromboplast Time 92.6 21.0-31.0 SECONDS Partial Thromboplastin Ratio 3.6 Sodium Level 135 136-145 mmol/L Potassium Level 3.2 3.5-5.1 mmol/L Chloride Level 100 98-107 mmol/L Carbon Dioxide Level 22 21-32 mmol/L Anion Gap 13.0 3-11 mmol/L Blood Urea Nitrogen 39 7-18 mg/dl Creatinine 2.20 0.60-1.20 mg/dl Est Creatinine Clear Calc Drug Dose 27.2 ml/min Estimated GFR () 25.1 Estimated GFR (Non- 21.7 BUN/Creatinine Ratio 17.5 10-20 Random Glucose 213 70-99 mg/dl Calcium Level 8.3 8.5-10.1 mg/dl Magnesium Level 2.3 1.8-2.4 mg/dl Total Bilirubin 1.1 0.2-1 mg/dl Aspartate Amino Transf (AST/SGOT) 29 15-37 U/L Alanine Aminotransferase (ALT/SGPT) 29 12-78 U/L Alkaline Phosphatase 84 45-117 U/L Total Protein 6.0 6.4-8.2 gm/dl Albumin 2.5 3.4-5.0 gm/dl Globulin 3.5 2.5-4.0 gm/dl Albumin/Globulin Ratio 0.7 0.9-2 Procalcitonin 0.38 0-0.5 ng/ml Free Thyroxine 1.27 0.80-1.60 ng/dl Total Triiodothyronine 0.49 0.60-1.81 ng/ml Random Vancomycin Level 15.9 mcg/ml Microbiology Results 02/01/17 Blood Culture, Received Pending 02/01/17 Blood Culture, Received Pending 02/01/17 MRSA DNA Surveillance Screen - Final, Complete Specimen Negative for MRSA by DNA Probe 02/01/17 Urine Culture, Received Pending
[2017-02-02] MEDS ORDERED: HYDROCHLOROTHIAZIDE 25 MG TAB PO SCH (09:00)
[2017-02-02] MEDS ORDERED: VANCOMYCIN INJ 1,500 MG in SODIUM CHLORIDE 0.9% 500ML 500 ML IV SCH (09:00)
[2017-02-02] MEDS ORDERED: VANCOMYCIN INJ 1,000 MG in SODIUM CHLORIDE 0.9% 250ML 250 ML IV SCH (09:00)
[2017-02-02] MEDS ORDERED: LISINOPRIL 40 MG TAB PO SCH (09:00)
--- NOTE | 2017-02-02 10:28 | DIAGNOSTIC IMAGING REPORT ---
CT SCAN OF THE CHEST WITHOUT IV CONTRAST CLINICAL HISTORY: Abnormal chest x-ray. Right lung consolidation. COMPARISON STUDY: Chest x-ray dated 02/01/2017. TECHNIQUE: CT scan of the thorax was performed from the thoracic inlet to the upper abdomen. Images are reviewed in the axial, sagittal, and coronal planes. IV contrast was not administered for this examination as per the referring clinician. CT DOSE: 571.07 mGy.cm FINDINGS: Thyroid: Imaged portions of the thyroid gland are normal in size and attenuation. Thoracic aorta: There is atherosclerotic calcification of the thoracic aorta, which is normal in caliber and demonstrates standard 3-vessel arch anatomy. Heart: The heart is enlarged and without pericardial effusion. The coronary arteries and mitral annulus are densely calcified. There is diminished attenuation of the cardiac blood pool as compared to the myocardium suggesting anemia. The main pulmonary arteries are dilated suggesting pulmonary artery hypertension. Lungs and pleural spaces: Evaluation of the lung parenchyma is degraded by motion artifact. There is dense airspace consolidation identified within the right upper and right middle lobes. Dependent airspace opacities are also seen in the right lower lobe at the lung bases. The left lung appears clear. There is a small right pleural effusion. No left pleural effusion is seen. The trachea and central airways are clear. Mediastinum: There is mediastinal lymphadenopathy. Pretracheal nodes measure up to 1.3 cm in short axis. Marisabel: Not well assessed without IV contrast. Axillae: There is no axillary lymphadenopathy. Upper abdomen: There is a tiny hiatal hernia. The spleen is mildly enlarged measuring 13.5 cm in length. Partially visualized upper abdominal viscera is otherwise within normal limits. Skeletal structures: The skeletal structures are osteopenic. Degenerative change is noted throughout the thoracic spine. A large hemangioma is incidentally noted in the body of T4. No lytic or blastic bony lesions are seen. IMPRESSION: 1. There is dense airspace consolidation identified in the right upper and middle lobes. The appearance is typical for pneumonia. Underlying mass lesion would be impossible to exclude and radiographic follow-up to resolution is recommended. 2. Small right pleural effusion. Dependent right basilar opacities likely represent atelectasis. 3. The left lung is clear. 4. Cardiomegaly. 5. Mediastinal lymphadenopathy is nonspecific and likely on a reactive basis. 6. Additional findings as above. Electronically signed by: Gelacio Paige M.D. 02/02/2017 10:27 AM Dictated Date/Time: 02/02/2017 10:21 AM
--- NOTE | 2017-02-02 13:03 | Cardiology Consultation ---
Cardiology Consultation Date of Consultation: Feb 02, 2017 History of Present Illness Wanda Felix is a 71 year old female seen in cardiology consultation per the request of Dr. Luna for the evaluation of atrial fibrillation with rapid ventricular rate. The patient is well known to the undersigned as I have followed her for the last several years as an outpatient. She had last been seen by the undersigned in August 2016. She presented to the emergency room yesterday having had onset of chills and progressive shortness of breath 5 days prior starting on Saturday. Presenting vital signs included pulse oximetry 91% on room air. Chest x-ray revealed consolidative infiltrate versus mass in her right midlung. She went on to a CT of the chest revealed a dense airspace consolidation in the right upper and middle lobes of the right lung suggestive of pneumonia. An underlying mass cannot be excluded. A small right pleural effusion was noted. Heart enlargement was noted. She is noted to have atherosclerotic changes in the coronary arteries as well as the aorta. The patient was to be admitted to the hospitalist service for the diagnosis of pneumonia. Her initial EKG on arrival to the emergency room on 02/01/17 at 17: 17 revealed sinus rhythm with sinus arrhythmia and no acute ST changes. A repeat tracing performed 02/01/17 1904 revealed new onset of atrial fibrillation with rapid ventricular rate at 130 bpm and possible age-indeterminate lateral infarction pattern. The patient was placed on a diltiazem infusion and was placed on heparin for stroke prophylaxis. Per my review of telemetry she spontaneously converted back to sinus rhythm on 02/02/17-20 6 AM. History Past Medical History: 1. Peripheral arterial disease for which she follows with faster surgery at [facility] [place] with past lateral iliac/femoral artery stenting/angioplasty 2. Carotid disease 3. Hypertension 4. Stage III chronic kidney disease 5. Type 2 diabetes mellitus 6. Dyslipidemia Past Surgical History: Lower extremity bilateral arterial intervention as described above. Social History: She is a former smoker. She is and lives with her spouse. She denies chronic use. Family History: Family history of underlying heart disease, details unknown as well as hypertension, diabetes. Review Of Systems 12 point review of systems was reviewed and is negative with the exception of recent chills, shortness of breath. She had no subjective palpitations. Allergies Coded Allergies: No Known Allergies (Unverified , 02/01/17) Medications Reported Home Medications Medications Dose Route/Sig Max Daily Dose Days Date Category Dose Instructions Calcium 600 with Vitamin 600-400 mg-Unit (Calcium Carbonate-Cholecalcife) 1 Tab Tab 1 Tab PO BID 02/01/17 Reported Atorvastatin Calcium (Atorvastatin) 40 Mg Tab 40 Mg PO DAILY 02/01/17 Reported Tylenol (Acetaminophen) 325 Mg Tab 325 Mg PO Q6 PRN 02/01/17 Reported Novolog (Insulin Aspart) 100 Units/Ml Inj Units PO UD 02/01/17 Reported 10 units at breakfast, 8 units at lunch and 12 unit at super Novolog (Insulin Aspart) 100 Units/Ml Inj 10 Units SQ QDB 02/01/17 Reported Lantus (Insulin Glargine) 100 Unit/Ml Inj 50 Units SC HS 02/01/17 Reported Protonix (Pantoprazole) 40 Mg Tab 40 Mg PO DAILY 08/20/15 Reported Normodyne (Labetalol HCl) 200 Mg Tab 200 Mg PO BID 08/20/15 Reported Norvasc (Amlodipine Besylate) 10 Mg Tab 10 Mg PO DAILY 08/20/15 Reported Plavix (Clopidogrel Bisulfate) 75 Mg Tab 75 Mg PO DAILY 08/20/15 Reported Hctz (Hydrochlorothiazide) 25 Mg Tab 25 Mg PO DAILY 08/20/15 Reported Aspir-81 (Aspirin) 81 Mg Tab 1 Tab PO DAILY 90 08/20/15 Reported Zestril (Lisinopril) 40 Mg Tab 40 Mg PO DAILY 08/20/15 Reported Physical Exam Vital Signs (Last 8hrs): Last 8 Hrs Date Time Temp Pulse Resp B/P (MAP) Pulse Ox O2 Delivery O2 Flow Rate FiO2 02/02/17 12:27 87 Nasal Cannula 6.0 02/02/17 11:30 37.2 77 20 114/61 (78) 97 Nasal Cannula 6.0 02/02/17 08:01 87 Nasal Cannula 6.0 02/02/17 07:06 37.2 72 20 117/56 (76) 87 Nasal Cannula 4.0 General Appearance: Alert and Oriented x3. NAD. Head: Normocephalic Atraumatic. Eyes: PERRLA, EOMI, conjunctiva and sclera clear Neck: Supple. No carotid bruits noted. No JVD. No HJD. Respiratory: Coarse breath sounds at the right mid lung field. Cardiovascular: Reg rate and rhythm. S1 and S2 noted. No murmurs, rubs, gallops. PMI non displace. Abdomen: Normal bowel sounds, soft nontender. no abdominal bruits. Extremities: No edema, no clubbing or cyanosis. distal pulses 2/4 bilaterally. Neuro: No focal deficits. Psychiatric: Normal affect. Data Last Resulted 02/02/17 06:37 Last Resulted 02/02/17 06:37 Past 24 Hours Test 02/01/17 17:20 02/01/17 23:12 02/02/17 06:37 Range/Units Prothromb Time International Ratio 1.1 0.9-1.1 Prothrombin Time 11.6 9.0-12.0 SECONDS Troponin I < 0.015 < 0.015 < 0.015 0-0.045 ng/ml Creatine Kinase MB 3.5 0.5-3.6 ng/ml Creatine Kinase MB Ratio 0-3.0 Imaging: Chest x-ray and CT as reviewed above. EKG: As reviewed above Telemetry reviewed: As reviewed above Assessment & Plan Impression: 71-year-old female 1. Apparent presentation for community acquired pneumonia 2. Atrial fibrillation, likely due to underlying cardiac strain from pneumonia and hypoxia, despite his converted to sinus rhythm 02/02/17-20 6 AM while on diltiazem infusion 3. Acute kidney injury on chronic kidney disease, recent baseline creatinine on outside laboratory study performed 12/12/16 at [facility] revealed creatinine of 1.2, compared to 2.2 today 4. Anemia, most recent outpatient hemoglobin of 11.3 g/dL and 2017, 8.4 today Discussion/recommendations: Patient is already back in sinus rhythm. She does have significant stroke risk factors with [id number] score of 5 for female sex, age > 65, DM, HTN, and PAD. Will continue heparin for now and monitor her hemoglobin. I'm not going to start oral anticoagulation at present until we determine if her hemoglobin is going to stabilize. Agree with antibiotic therapy as already prescribed by the primary service. She has been on labetalol 200 mg twice a day chronically for blood pressure control. At this time I'm going to discontinue this in favor of metoprolol tartrate 50 mg twice a day for rate control and blood pressure. Although the CT suggests a right-sided pleural effusion, I think the patient has perhaps a bit volume depleted based on her creatinine and I recommend against supplemental IV fluids at this point. She is going to receive IV fluid for her antibiotics, we should try to keep her intake and output even. DVT prophylaxis: She is on systemic anticoagulation with heparin infusion. Her hypokalemia and hypomagnesemia have been addressed by the primary service. Popeye Singleton D.O.
[2017-02-02 16:01] LABS: HEMATOCRIT 27.5 % (37-47)
--- NOTE | 2017-02-02 16:41 | ECHOCARDIOGRAM REPORT ---
*NOTICE TO RECEIVING LIBERTARIAN AGENCY This information is strictly Confidential and protected under [place] law. [place] law prohibits you from making any further disclosure of this information unless further disclosure is expressly permitted by the written consent of the person to whom it pertains or is authorized by law. A general authorization for the release of medical or other information is not sufficient for this purpose. Hospital accepts no responsibility if the information is made available to any other person, INCLUDING THE PATIENT. Interpretation Summary * Name: SARAH KRISHNAN Study Date: 02/02/2017 02:26 PM BP: 114/61 mmHg * Patient Location: [facility] HR: 85 * : 1945 (M/d/yyyy) Gender: Female Height: 66 in * Age: 71 yrs Ethnicity: CA Weight: 215 lb * Ordering Physician: Popeye Singleton DO, FACC * Referring Physician: Popeye Singleton DO, FACC * Performed By: Lynn Hoffman RCS * * Reason For Study: A-FIB * BSA: 2.1 m2 * The study was technically adequate. * -- Conclusions -- * There is mild concentric left ventricular hypertrophy. * The left ventricular wall motion is normal. * Ejection Fraction = 55-60%. * Aortic valve sclerosis moderate, without significant aortic valvular stenosis. * There is moderate mitral annular calcification. * Diastolic dysfunction, Grade II (pseudonormalization pattern). Procedure Details * A complete two-dimensional transthoracic echocardiogram was performed (2D, M-mode, Doppler and color flow Doppler). Left Ventricle * The left ventricle is normal in size. * There is mild concentric left ventricular hypertrophy. * Left ventricular systolic function is normal. * Ejection Fraction = 55-60%. * The left ventricular wall motion is normal. Right Ventricle * The right ventricle is normal size. * The right ventricular systolic function is normal as assessed by tricuspid annular plane systolic excursion (TAPSE) (normal >1.5 cm). Atria * The left atrial size is normal. * Right atrial size is normal. * There is no evidence of atrial septal defect, but resolution does not allow assessment for a patent foramen ovale. Mitral Valve * There is moderate mitral annular calcification. * There is no mitral valve stenosis. * Significant mitral regurgitation is absent. Tricuspid Valve * The tricuspid valve is normal. * There is no tricuspid stenosis. * Significant tricuspid regurgitation is absent. * Doppler findings do not suggest pulmonary hypertension. Aortic Valve * The aortic valve is not well visualized. * Aortic valve sclerosis moderate, without significant aortic valvular stenosis. * Aortic stenosis is absent. * There is no significant aortic regurgitation. Pulmonic Valve * The pulmonary valve is not well seen, but the Doppler examination is normal without significant regurgitation or stenosis. Great Vessels * The aortic root and proximal ascending aorta are normal sized. Pericardium/Pleural * There is no pericardial effusion. Great Vessels * Normal inferior vena cava diameter and respiratory variation suggests normal central venous pressure. Left Ventricular Diastolic Function * Diastolic dysfunction, Grade II (pseudonormalization pattern). MMode 2D Measurements and Calculations IVSd 1.6 cm IVSs 1.9 cm LVIDd 4.6 cm LVIDs 3.2 cm LVPWd 1.3 cm LVPWs 1.5 cm IVS/LVPW 1.3 FS 30.5 % EDV(Teich) 96.5 ml ESV(Teich) 40.5 ml EF(Teich) 58.0 % EDV(cubed) 96.2 ml ESV(cubed) 32.3 ml EF(cubed) 66.4 % % IVS thick 16.3 % % LVPW thick 15.9 % LV mass(C)d 273.9 grams LV mass(C)dI 132.8 grams/m\S\2 LV mass(C)s 212.1 grams LV mass(C)sI 102.8 grams/m\S\2 SV(Teich) 56.0 ml SI(Teich) 27.1 ml/m\S\2 SV(cubed) 63.9 ml SI(cubed) 31.0 ml/m\S\2 Ao root diam 3.7 cm Ao root area 10.7 cm\S\2 LA dimension 3.9 cm LA/Ao 1.1 LVOT diam 2.0 cm LVOT area 3.1 cm\S\2 LVAd ap4 30.7 cm\S\2 LVLd ap4 6.5 cm EDV(MOD-sp4) 116.1 ml EDV(sp4-el) 123.9 ml LVAs ap4 18.0 cm\S\2 LVLs ap4 5.6 cm ESV(MOD-sp4) 48.6 ml ESV(sp4-el) 49.5 ml EF(MOD-sp4) 58.1 % EF(sp4-el) 60.0 % LVAd ap2 26.7 cm\S\2 LVLd ap2 6.3 cm EDV(MOD-sp2) 92.6 ml EDV(sp2-el) 95.3 ml LVAs ap2 14.9 cm\S\2 LVLs ap2 5.1 cm ESV(MOD-sp2) 37.7 ml ESV(sp2-el) 36.6 ml EF(MOD-sp2) 59.3 % EF(sp2-el) 61.6 % LVLd %diff -2.06 % EDV(MOD-bp) 105.6 ml LVLs %diff -8.60 % ESV(MOD-bp) 41.2 ml EF(MOD-bp) 61.0 % SV(MOD-sp4) 67.4 ml SI(MOD-sp4) 32.7 ml/m\S\2 SV(MOD-sp2) 54.9 ml SI(MOD-sp2) 26.6 ml/m\S\2 SV(MOD-bp) 64.4 ml SI(MOD-bp) 31.2 ml/m\S\2 SV(sp4-el) 74.4 ml SI(sp4-el) 36.1 ml/m\S\2 SV(sp2-el) 58.6 ml SI(sp2-el) 28.4 ml/m\S\2 Doppler Measurements and Calculations MV E max yash 150.4 cm/sec MV A max yash 121.3 cm/sec MV E/A 1.2 MV P1/2t max yash 158.9 cm/sec MV P1/2t 70.2 msec MVA(P1/2t) 3.1 cm\S\2 MV dec slope 663.0 cm/sec\S\2 MV dec time 0.17 sec Ao V2 max 138.9 cm/sec Ao max PG 7.7 mmHg Ao max PG (full) 3.6 mmHg JUAN PABLO(V,A) 2.3 cm\S\2 JUAN PABLO(V,D) 2.3 cm\S\2 AI max yash 282.5 cm/sec AI max PG 31.9 mmHg AI dec slope 230.6 cm/sec\S\2 AI P1/2t 358.8 msec LV V1 max PG 4.1 mmHg LV V1 max 101.4 cm/sec MR max yash 390.8 cm/sec MR max PG 61.1 mmHg TR max yash 261.3 cm/sec
[2017-02-02] MEDS: HEPARIN 25,000 UNIT/500ML D5W 500 ML IV PRN (18:45)
[2017-02-02] MEDS: ACETAMINOPHEN 325 MG TAB PO PRN (19:35)
[2017-02-02] MEDS: METOPROLOL TARTRATE 50 MG TAB PO SCH (21:03)
[2017-02-02] MEDS: INSULIN GLARGINE SOLOSTAR 100 UNITS/ML 3 ML PEN SC SCH (21:06)
[2017-02-03] VITALS (14 sets, daily range): BP systolic 131–167; BP diastolic 54–73; PULSE 78–94; TEMP 36.9–37.2; O2SAT 87–96
[2017-02-03 07:08] LABS: HEMATOCRIT 27.8 % (37-47); MEAN CELL VOLUME 87.4 fL (80-100); MEAN CORPUSCULAR HEMOGLOBIN 28.6 pg (25-34); MEAN CORPUSCULAR HGB CONC 32.7 g/dl (32-36); MEAN PLATELET VOLUME 10.5 fL (7.4-10.4); PLATELET COUNT 211 K/uL (130-400); RED BLOOD COUNT 3.18 M/uL (4.2-5.4); WHITE BLOOD COUNT 7.42 K/uL (4.8-10.8)
[2017-02-03] MEDS: CALCIUM 600MG + VIT D 400 IU TAB PO SCH ×2 (07:14→20:51)
[2017-02-03] MEDS: ATORVASTATIN 40 MG TAB PO SCH (07:15)
[2017-02-03] MEDS: PANTOprazole SOD 40 MG TAB PO SCH (07:15)
[2017-02-03] MEDS: METOPROLOL TARTRATE 50 MG TAB PO SCH ×2 (07:15→20:51)
[2017-02-03] MEDS: ASPIRIN 81 MG ECTAB PO SCH (07:15)
[2017-02-03] MEDS: AMLODIPINE BESYLATE 5 MG TAB PO SCH (07:15)
[2017-02-03] MEDS: CLOPIDOGREL BISULFATE 75 MG TAB PO SCH (07:15)
[2017-02-03 07:25] LABS: PARTIAL THROMBOPLASTIN RATIO 2.2
[2017-02-03 07:44] LABS: BUN/CREATININE RATIO 22.6 (10-20); CREATININE 1.5 mg/dl (0.60-1.20); POTASSIUM 3.6 mmol/L (3.5-5.1)
[2017-02-03] MEDS: INSULIN ASPART 100 UNITS/ML 3 ML PEN SC SCH ×4 (08:05→20:54)
[2017-02-03] MEDS ORDERED: POTASSIUM CHLORIDE 10 MEQ TABCR PO ONE (08:30)
--- NOTE | 2017-02-03 08:41 | Progress Note ---
Internal Med Progress Note Date of Service: Feb 03, 2017. Provider Documentation: SUBJECTIVE: Seen and examined at bedside. States feeling much better. Reports breathing and cough is improved Denies chest pain, palpitations, dizziness. Denies any bleeding issues-hematuria, blood in stools. OBJECTIVE: Vital Signs-as noted below Physical Exam: General Appearance:Moderately built and nourished, no apparent distress Head: normocephalic, Atraumatic Eyes: normal inspection, EOMI, PERRL Neck: supple, Trachea midline +Carotid bruit Respiratory/Chest: Decreased breath sounds, b/l few crackles Cardiovascular: S1, S2, No murmur Abdomen/GI:Soft, Non tender, Bowel sounds present Extremities/Musculoskelatal:normal inspection, Trace edema Neurologic/Psych: grossly no focal neurological deficits Skin: normal color, warm Lab data as noted below. ASSESSMENT & PLAN: NEW ONSET ATRIAL FIBRILLATION Currently in sinus S/P Cardizem ggt On Heparin drip Troponin X 3: Negative Appreciate cardiology input Labetalol at home is replaced by metoprolol tartrate 50 mg BID for rate control monitor electrolytes Nuclear stress test on 04/27 was normal Dobutamine stress echo done on 04/27:Nondiagnostic dobutamine stress echocardiogram due to inability to achieve target heart rate. MULTILOBAR PNEUMONIA / HYPOXIA CXR showed Consolidative infiltrate versus mass right midlung Received IV Vanco, Zosyn, levaquin and Dapto in the ER Continue Levaquin MRSA screen negative. Will DC Vanco Blood and Urine cultures: No growth to date CT chest : R upper and middle lobes consolidation, ? Underlying mass Former Smoker:quit in 2006 Needs 2 step prior to DC Will consult Pulm ANEMIA: Baseline Hb:9.8 >>>8.4>>>9.1 Likely dilutional secondary to IVF FOBT:pending Monitor HH on Aspirin, Plavix and Heparin ggt Denies any bleeding issues ACUTE KEILA ON CKD III Cr: 1.2 on 12/12/16 Cr 2.2 >>>1.5 Lisinopril and HCTZ on hold for now Discontinued IVF Avoid nephrotoxic agents monitor renal function ELECTROLYTES IMBALANCE Mg 1.7>> 2.3>>>2.0 Potassium:3.2>>>3.6 keep Mg above 2 and K above 4. continue monitor Potassium replaced ABNORMAL TSH Possibly related to acute illness TSH:low Free T4: normal Total T3:low Repeat Thyroid function tests in few weeks as outpatient DM II HBA1C 6.5 on 12/12/16- Controlled Continue Lantus Insulin coverage Monitor BS HTN stable Hold Lisinopril and HCTZ due to KEILA Continue Norvasc 10mg monitor BP PVD CAROTID ARTERY STENOSIS Continue Plavix/ Aspirin/ Statin DYSLIPIDEMIA Continue Lipitor DVT Px on Heparin Drip CODE STATUS FULL CODE Disposition: Monitor in Tele May need repeat CT chest as outpatient to evaluate for complete resolution Needs repeat thyroid function test as outpatient Needs 2 step prior to DC PROCEDURES: CT CHEST: 1. There is dense airspace consolidation identified in the right upper and middle lobes. The appearance is typical for pneumonia. Underlying mass lesion would be impossible to exclude and radiographic follow-up to resolution is recommended. 2. Small right pleural effusion. Dependent right basilar opacities likely represent atelectasis. 3. The left lung is clear. 4. Cardiomegaly. 5. Mediastinal lymphadenopathy is nonspecific and likely on a reactive basis. 6. Additional findings as above. ECHO: * There is mild concentric left ventricular hypertrophy. * The left ventricular wall motion is normal. * Ejection Fraction = 55-60%. * Aortic valve sclerosis moderate, without significant aortic valvular stenosis. * There is moderate mitral annular calcification. * Diastolic dysfunction, Grade II (pseudonormalization pattern). Vital Signs: Date Time Temp Pulse Resp B/P (MAP) Pulse Ox O2 Delivery O2 Flow Rate FiO2 02/03/17 08:01 87 Nasal Cannula 6.0 02/03/17 04:46 37.0 81 18 149/67 (94) 95 4.0 02/03/17 04:00 95 Nasal Cannula 4.0 02/03/17 00:13 37.0 79 16 131/72 (91) 96 4.0 02/02/17 23:59 95 Nasal Cannula 4.0 02/02/17 20:00 95 Nasal Cannula 4.0 02/02/17 19:22 37.7 90 18 137/67 (90) 95 Nasal Cannula 6.0 02/02/17 16:32 87 Nasal Cannula 6.0 02/02/17 15:40 36.9 84 18 137/72 (93) 92 Nasal Cannula 6.0 02/02/17 12:27 87 Nasal Cannula 6.0 02/02/17 11:30 37.2 77 20 114/61 (78) 97 Nasal Cannula 6.0 Lab Results: Results Past 24 Hours Test 02/02/17 11:28 02/02/17 13:50 02/02/17 15:55 02/02/17 16:27 Range/Units Bedside Glucose 280 217 70-90 mg/dl Activated Partial Thromboplast Time 53.1 21.0-31.0 SECONDS Partial Thromboplastin Ratio 2.0 Hemoglobin 8.8 12.0-16.0 g/dL Hematocrit 27.5 37-47 % Test 02/02/17 20:24 02/03/17 06:27 02/03/17 06:47 Range/Units Bedside Glucose 236 231 70-90 mg/dl White Blood Count 7.42 4.8-10.8 K/uL Red Blood Count 3.18 4.2-5.4 M/uL Hemoglobin 9.1 12.0-16.0 g/dL Hematocrit 27.8 37-47 % Mean Corpuscular Volume 87.4 80-100 fL Mean Corpuscular Hemoglobin 28.6 25-34 pg Mean Corpuscular Hemoglobin Concent 32.7 32-36 g/dl RDW Standard Deviation 46.4 36.4-46.3 fL RDW Coefficient of Variation 14.5 11.5-14.5 % Platelet Count 211 130-400 K/uL Mean Platelet Volume 10.5 7.4-10.4 fL Activated Partial Thromboplast Time 56.9 21.0-31.0 SECONDS Partial Thromboplastin Ratio 2.2 Sodium Level 137 136-145 mmol/L Potassium Level 3.6 3.5-5.1 mmol/L Chloride Level 103 98-107 mmol/L Carbon Dioxide Level 25 21-32 mmol/L Anion Gap 9.0 3-11 mmol/L Blood Urea Nitrogen 34 7-18 mg/dl Creatinine 1.50 0.60-1.20 mg/dl Est Creatinine Clear Calc Drug Dose 40.1 ml/min Estimated GFR () 39.9 Estimated GFR (Non- 34.4 BUN/Creatinine Ratio 22.6 10-20 Random Glucose 225 70-99 mg/dl Calcium Level 9.0 8.5-10.1 mg/dl Magnesium Level 2.0 1.8-2.4 mg/dl
--- NOTE | 2017-02-03 13:45 | Pulmonary Consultation ---
History General Date of Service: Feb 03, 2017. Stated Complaint: Atrial Fibrillation, Pneumonia HPI The patient is a 71 year old female who presents to [facility] with complaints of Atrial Fibrillation, Pneumonia. The patient's primary care provider is Jose C Roth D.O.. Wanda Felix is a 71 year old female who presented to ED with chills and about 5- 6 days of progressively worsening shortness of breath later associated with cough and production of brownish sputum. CXR revealed RULung field opacification and she has received vancomycin zosyn and levaquin. Vancomycin was stopped due to negative MRSA. She comes from the community with single lobe pneumonia. The patient developed A fib with RVR and was treated with cardiology oversight. She has reverted to sinus rhythm and is saturating well on RA 92-93% and does not appear in respiratory distress at this point. A CT chest was performed. It shows consolidation and air bronchograms in the RUL. The patient is an ex-smoker of >30pk year and she says she has not had any inhalers or ET limitation in the past. She stopped smoking in 2006. She denies family history of lung cancer. The who was at the bedside reported that 2 years back he had pneumonia of both his upper lungs and was having CT of his Chest every 6 months and then had a PFT (described the glass chamber) She denies travelling outside [facility] recently or outside the [place] ever. She also does not describe sick contacts. Review of Systems On a 10 point ROS she has no other complaints. Past Medical History Past Medical History: 1. Peripheral arterial disease for which she follows with faster surgery at [facility] with past lateral iliac/femoral artery stenting/angioplasty 2. Carotid disease 3. Hypertension 4. Stage III chronic kidney disease 5. Type 2 diabetes mellitus 6. Dyslipidemia Past Surgical History: Lower extremity bilateral arterial intervention as described above. Family History Diabetes mellitus FHx: cancer FHx: heart disease Hypertension Social History Hx Tobacco Use In Past Year?: No Smoking Status: Former Smoker Marital status: Immunizations History of Pneumococcal: Yes History of MDRO History of MDRO: No Allergies Coded Allergies: No Known Allergies (Unverified , 02/01/17) Current Medications Reported Home Medications Medications Dose Route/Sig Max Daily Dose Days Date Category Dose Instructions Calcium 600 with Vitamin 600-400 mg-Unit (Calcium Carbonate-Cholecalcife) 1 Tab Tab 1 Tab PO BID 02/01/17 Reported Atorvastatin Calcium (Atorvastatin) 40 Mg Tab 40 Mg PO DAILY 02/01/17 Reported Tylenol (Acetaminophen) 325 Mg Tab 325 Mg PO Q6 PRN 02/01/17 Reported Novolog (Insulin Aspart) 100 Units/Ml Inj Units PO UD 02/01/17 Reported 10 units at breakfast, 8 units at lunch and 12 unit at super Novolog (Insulin Aspart) 100 Units/Ml Inj 10 Units SQ QDB 02/01/17 Reported Lantus (Insulin Glargine) 100 Unit/Ml Inj 50 Units SC HS 02/01/17 Reported Protonix (Pantoprazole) 40 Mg Tab 40 Mg PO DAILY 08/20/15 Reported Normodyne (Labetalol HCl) 200 Mg Tab 200 Mg PO BID 08/20/15 Reported Norvasc (Amlodipine Besylate) 10 Mg Tab 10 Mg PO DAILY 08/20/15 Reported Plavix (Clopidogrel Bisulfate) 75 Mg Tab 75 Mg PO DAILY 08/20/15 Reported Hctz (Hydrochlorothiazide) 25 Mg Tab 25 Mg PO DAILY 08/20/15 Reported Aspir-81 (Aspirin) 81 Mg Tab 1 Tab PO DAILY 90 08/20/15 Reported Zestril (Lisinopril) 40 Mg Tab 40 Mg PO DAILY 08/20/15 Reported Physical Physical Exam Vital Signs: Date Time Temp Pulse Resp B/P (MAP) Pulse Ox O2 Delivery O2 Flow Rate FiO2 02/03/17 13:07 78 93 02/03/17 12:21 87 Nasal Cannula 6.0 02/03/17 11:02 37.0 81 20 145/66 (92) 93 Room Air 02/03/17 08:13 36.9 83 20 144/67 (92) 88 Room Air 02/03/17 08:01 87 Nasal Cannula 6.0 02/03/17 04:46 37.0 81 18 149/67 (94) 95 4.0 02/03/17 04:00 95 Nasal Cannula 4.0 02/03/17 00:13 37.0 79 16 131/72 (91) 96 4.0 02/02/17 23:59 95 Nasal Cannula 4.0 02/02/17 20:00 95 Nasal Cannula 4.0 02/02/17 19:22 37.7 90 18 137/67 (90) 95 Nasal Cannula 6.0 02/02/17 16:32 87 Nasal Cannula 6.0 02/02/17 15:40 36.9 84 18 137/72 (93) 92 Nasal Cannula 6.0 General Appearance: WELL-APPEARING, NO APPARENT DISTRESS Head: NORMOCEPHALIC, ATRAUMATIC Eyes: PERRLA, SCLERAE NORMAL ENT: NORMAL THROAT EXAM Neck: NORMAL RANGE OF MOTION, NO TENDERNESS, TRACHEA MIDLINE, SUPPLE Respiratory: CLEAR TO AUSCULTATION, other (bilaterally. I did not hear bronchial sounds rhales or wheezes.) Cardiovasular: NORMAL S1S2, NO MURMUR Abdomen: NON TENDER, NO GUARDING, other (central obesity) Back: NORMAL INSPECTION Upper Extremities: NO EDEMA, NO DEFORMITY Lower Extremities: NO EDEMA, NO DEFORMITY Pulses: carotid (R) (2+), carotid (L) (2+), radial (R) (2+), radial (L) (2+) Neuro: ALERT, ORIENTED x 3, NORMAL MOTOR EXAM Diagnostics Labs Results Past 24 Hours Test 02/02/17 13:50 02/02/17 15:55 02/02/17 16:27 02/02/17 20:24 Range/Units Activated Partial Thromboplast Time 53.1 21.0-31.0 SECONDS Partial Thromboplastin Ratio 2.0 Hemoglobin 8.8 12.0-16.0 g/dL Hematocrit 27.5 37-47 % Bedside Glucose 217 236 70-90 mg/dl Test 02/03/17 06:27 02/03/17 06:47 02/03/17 11:29 Range/Units Bedside Glucose 231 328 70-90 mg/dl White Blood Count 7.42 4.8-10.8 K/uL Red Blood Count 3.18 4.2-5.4 M/uL Hemoglobin 9.1 12.0-16.0 g/dL Hematocrit 27.8 37-47 % Mean Corpuscular Volume 87.4 80-100 fL Mean Corpuscular Hemoglobin 28.6 25-34 pg Mean Corpuscular Hemoglobin Concent 32.7 32-36 g/dl RDW Standard Deviation 46.4 36.4-46.3 fL RDW Coefficient of Variation 14.5 11.5-14.5 % Platelet Count 211 130-400 K/uL Mean Platelet Volume 10.5 7.4-10.4 fL Activated Partial Thromboplast Time 56.9 21.0-31.0 SECONDS Partial Thromboplastin Ratio 2.2 Sodium Level 137 136-145 mmol/L Potassium Level 3.6 3.5-5.1 mmol/L Chloride Level 103 98-107 mmol/L Carbon Dioxide Level 25 21-32 mmol/L Anion Gap 9.0 3-11 mmol/L Blood Urea Nitrogen 34 7-18 mg/dl Creatinine 1.50 0.60-1.20 mg/dl Est Creatinine Clear Calc Drug Dose 40.1 ml/min Estimated GFR () 39.9 Estimated GFR (Non- 34.4 BUN/Creatinine Ratio 22.6 10-20 Random Glucose 225 70-99 mg/dl Calcium Level 9.0 8.5-10.1 mg/dl Magnesium Level 2.0 1.8-2.4 mg/dl Diagnostic Radiology C T officially read as 1. There is dense airspace consolidation identified in the right upper and middle lobes. The appearance is typical for pneumonia. Underlying mass lesion would be impossible to exclude and radiographic follow-up to resolution is recommended. 2. Small right pleural effusion. Dependent right basilar opacities likely represent atelectasis. 3. The left lung is clear. 4. Cardiomegaly. 5. Mediastinal lymphadenopathy is nonspecific and likely on a reactive basis. 6. Additional findings as above. EKG NSR at this point Impression Assessment and Plan 71 yo female with history of tobacco abuse stopped in 2006. She does not carry a formal diagnosis of COPD but she is likely to have obstructive pattern and definitely needs PFT as outpatient once the acute illness resolves. She also developed A fib with RVR which resolved to NSR. It is difficult to say whether her A fibe is solely due to the septic episode. Procalcitonin was not that high. She may very well have paroxysmal A fib and we would defer to cardiology. Her body habitus suggests FRANCINE which would definitely predispose her to A fib. She is also in the age group and with the risk factor for developing lung cancer (age 55-80 with more than 30 pk year of smoking stopped within the prior 15 years) So there may be a nodule or mass underneath the infiltrates. The CT scan now shows consolidation with airbronchograms which suggests pneumonia more than anything else. She definitely needs to have a repeat CT in 6 weeks or so. At that point the current infiltrates should have resolved. She is not a risk for Tb by exposure history but upper lobes usually suggest tumors, Tb and ETOH abuse. Therefore 71 yo female admitted with acute respiratory failure on background of former tobacco abuse, unilobar RUL pneumonia, a fib with RVR suggest 1- continue levaquin alone as this is a CAP. 2- place PPD to ascertain no Tb 3- anticoagulation per cardiology (likely a limited coumadin course unless she shows evidence of paroxysmal A fib) 4- add duoneb. This will enhance clearance. 5- She needs repeat CT chest in 6 weeks at most 6- she needs PFT 4-6 weeks from now and then decision to place her on inhalers depending on presence and severity of obstruction. Usually the order would be LAMA with PRN ELISEO then ADD LABA/ICS. DVT prophylaxis is taken care of by the therapeutic heparin Defer non respiratory medical management to the primary medical team. Thank you
--- NOTE | 2017-02-03 14:28 | Cardiology Follow-Up ---
Subjective General Date of Service: Feb 03, 2017. Chief Complaint: follow up AF Pt evaluation today including: conversation w/ patient, physical exam History of Present Illness The patient is a 71 year old female seen in follow up. Patient still with conversation shortness of breath. Telemetry reveals SR without recurrence of the AF. Allergies Coded Allergies: No Known Allergies (Unverified , 02/01/17) Social History Smoking Status: Former Smoker Hx Tobacco Use In Past Year?: No Hx Alcohol Use - Type And Amou: No Hx Substance Use - Type And Am: No Problem List Medical Problems: (1) KEILA (acute kidney injury) Status: Acute (2) Fever Status: Acute (3) Generalized weakness Status: Acute (4) Hypomagnesemia Status: Acute (5) Pneumonia involving right lung Status: Acute (6) Post operative infected tooth socket Status: Acute (7) Post-operative infection Status: Acute (8) Rapid atrial fibrillation Status: Acute Physical Exam Vital Signs Last Vital Signs Documentation Date Time Temp Pulse Resp B/P (MAP) Pulse Ox O2 Delivery O2 Flow Rate FiO2 02/03/17 13:07 78 93 02/03/17 12:21 Nasal Cannula 6.0 02/03/17 11:02 37.0 20 145/66 (92) Physical Exam Constitutional: Level of Distress: NAD Neck: supple Lungs: Auscultation: pertinent finding (course right-sided breath sounds.) Cardiovascular: Heart Auscultation: RRR, no murmurs Extremities: no edema Assessment and Plan Assessment and Plan And diabetes, Impression: 71-year-old female 1. Community acquired pneumonia 2. Atrial fibrillation, likely due to underlying cardiac strain from pneumonia and hypoxia, despite his converted to sinus rhythm 02/02/17-20 6 AM while on diltiazem infusion 3. Acute kidney injury on chronic kidney disease, recent baseline creatinine on outside laboratory study performed 12/12/16 at [facility] revealed creatinine of 1.2, compared to 2.2 today 4. Anemia, Hgb improved Plan: Continue heparin for now. Given her underlying risk factors for stroke including female sex, age over 65, hypertension, PAD, diabetes, recommend continuation of heparin for now . The question is whether this is a one-time episode of atrial fibrillation in the setting of pneumonia or if she has been having paroxysmal atrial fibrillation outside hospital. Will need a 2 week Zio monitor after discharge. She is on chronic ASA and clopidogrel for her bilateral lower extremity stents. I'm somewhat hesitant about her going on triple therapy with aspirin, clopidogrel and Coumadin, despite her stroke risk. If no recurrence of AF by tomorrow, 02/04/17, would recommend discontinuation of unfractionated heparin and continue long-term aspirin and clopidogrel. If she has a recurrence of her atrial fibrillation, will likely need to place her on aspirin plus Coumadin and eliminate the clopidogrel. Her lower extremity revascularizations are not recent. Debi Singleton DO Laboratory Results Last 24 Hours Test 02/02/17 15:55 02/02/17 16:27 02/02/17 20:24 02/03/17 06:27 Hemoglobin 8.8 g/dL Hematocrit 27.5 % Bedside Glucose 217 mg/dl 236 mg/dl 231 mg/dl Test 02/03/17 06:47 02/03/17 11:29 White Blood Count 7.42 K/uL Red Blood Count 3.18 M/uL Hemoglobin 9.1 g/dL Hematocrit 27.8 % Mean Corpuscular Volume 87.4 fL Mean Corpuscular Hemoglobin 28.6 pg Mean Corpuscular Hemoglobin Concent 32.7 g/dl RDW Standard Deviation 46.4 fL RDW Coefficient of Variation 14.5 % Platelet Count 211 K/uL Mean Platelet Volume 10.5 fL Activated Partial Thromboplast Time 56.9 SECONDS Partial Thromboplastin Ratio 2.2 Sodium Level 137 mmol/L Potassium Level 3.6 mmol/L Chloride Level 103 mmol/L Carbon Dioxide Level 25 mmol/L Anion Gap 9.0 mmol/L Blood Urea Nitrogen 34 mg/dl Creatinine 1.50 mg/dl Est Creatinine Clear Calc Drug Dose 40.1 ml/min Estimated GFR () 39.9 Estimated GFR (Non- 34.4 BUN/Creatinine Ratio 22.6 Random Glucose 225 mg/dl Calcium Level 9.0 mg/dl Magnesium Level 2.0 mg/dl Bedside Glucose 328 mg/dl
[2017-02-03] MEDS ORDERED: TUBERCULIN SKIN TEST 5 TU in SYRINGE 0 ML ID ONE (14:30)
--- NOTE | 2017-02-03 15:27 | Pharmacy Progress Note ---
Glycemic Control: Initial Note Date of Service Feb 03, 2017. Scope Glycemic Pharmacist to provide recommendations to improve glycemic control (all 1E/2E patients are screened for hyperglycemia and treatment recommendations are provided per protocol). Pt identified with hyperglycemia (BSG above 180) while admitted to [facility] ([facility]/ [facility]). Subjective The patient is a 71 year old female admitted on Feb 01, 2017 at 20:05 for Atrial Fibrillation, Pneumonia. Patient's past medical history [] significant for diabetes mellitus. Objective Height (Feet): 5 Height (Inches): 6.00 Weight (Kilograms): 98.300 Accuchecks BSG (last 24hrs): Test 02/02/17 16:27 02/02/17 20:24 02/03/17 06:27 02/03/17 06:47 Bedside Glucose 217 mg/dl (70-90) 236 mg/dl (70-90) 231 mg/dl (70-90) Random Glucose 225 mg/dl (70-99) Test 02/03/17 11:29 Bedside Glucose 328 mg/dl (70-90) Laboratory Data (last 24hrs) Test 02/03/17 06:47 Anion Gap 9.0 mmol/L BUN/Creatinine Ratio 22.6 Blood Urea Nitrogen 34 mg/dl Creatinine 1.50 mg/dl Potassium Level 3.6 mmol/L Sodium Level 137 mmol/L White Blood Count 7.42 K/uL Recent Pertinent Medications Outpatient Anti-diabetic Regimen: * Lantus 50 units SQ HIS * NovoLog with meals: * 10 units with breakfast * 8 units with Lunch * 12 units with supper * Total daily outpatient dose = 80 units/day The patient is currently receiving: * Basal Insulin: Lantus 35 units every 24 hours given at bedtime * Correctional Insulin: Novolog Correction per scale ACHS Goal Range: Low 140 mg/dL - High 180 mg/dL Correction Factor: 45 mg/dL/unit * Prandial Insulin: Per carb ratio of 1 unit per 15 grams CHO consumed Risk Factors for Insulin Resistance: * Infection * Diet Assessment & Plan ASSESSMENT: * Pt identified with sustained hyperglycemia secondary to reduced outpatient insulin dosing, stress/infection, and dextrose IVF {heparin drip} * Pt uses 80 units/day as an outpatient with good control * A1c is reported as 6.5% on 12/12/16 * Pt is only receiving ~ 50 units of insulin per day for admission * Lantus 35 units HS {takes 50 units HS as an outpatient} * NovoLog 3-8 units with meals {uses 8-12 units as an outpatient} * Glycemic control is not adequate with current orders. See recommendations below * BSGs 224, 280, 217, 236, 231, 328mg/dl over the past 36 hrs * AM fasting BSG is elevated at 224, 231mg/dl today --> basal insulin needs increased * Post-prandial BSGs are high at 280, 217, 236, 328 --> CF/CR need tightened RECOMMEND: please note that pharmacy is NOT consulted for glycemic control at this time. * Basal insulin * Increasing Lantus to 50 units SQ HS {this is outpatient dosing} * Bolus insulin * Tighen NovoLog parameters * NovoLog per scale ACHS or Q6hrs while NPO * Goal Range: Low 110 mg/dL - High 140 mg/dL {lower goal range warranted for good baseline control} * Correction Factor: 20 mg/dL/unit * Nutritional / Prandial insulin per carb ratio of 1 unit per 7 grams CHO consumed * Consider consulting pharmacy for glycemic control to titrate insulin doses for admission. Pharmacy will continue to provide recommendations in EMR while patient admitted to 1E/2E. Physicians may request pharmacy to continue to follow patient when transferred out of the ICU and/or consult pharmacy to write glycemic control orders * Please note that the plan above was derived based on current level of insulin resistance and hospital stress. These recommendations are appropriate for inpatient admission only. Plan of care upon discharge will need to be reassessed to avoid potential outpatient hypo/hyperglycemia. Thank you.
[2017-02-03] MEDS: ALBUT/IPRATROP 3MG/0.5MG NEB 3 ML VIAL INH SCH ×2 (15:48→19:08)
[2017-02-03] MEDS: ACETAMINOPHEN 325 MG TAB PO PRN (19:28)
[2017-02-03] MEDS: INSULIN GLARGINE SOLOSTAR 100 UNITS/ML 3 ML PEN SC SCH (20:54)
[2017-02-03] MEDS ORDERED: LEVOFLOXACIN / D5W 750 MG in PREMIXED IN D5W 150 ML IV SCH (22:00)
[2017-02-04 03:45] VITALS: BP 160/63; PULSE 84; TEMP 37.3; O2SAT 91
[2017-02-04 06:20] LABS: PARTIAL THROMBOPLASTIN RATIO 2.1
[2017-02-04 06:40] LABS: BUN/CREATININE RATIO 19.6 (10-20); CREATININE 1.4 mg/dl (0.60-1.20); MAGNESIUM 1.8 mg/dl (1.8-2.4)
[2017-02-04 07:24] LABS: ESTIMATED AVERAGE GLUCOSE 166 mg/dl; HA1C FLAG Normal (Normal)
[2017-02-04] MEDS: INSULIN ASPART 100 UNITS/ML 3 ML PEN SC SCH ×2 (07:33→11:36)
[2017-02-04] MEDS: ALBUT/IPRATROP 3MG/0.5MG NEB 3 ML VIAL INH SCH ×2 (07:35→11:26)
[2017-02-04 08:00] VITALS: O2SAT 98
[2017-02-04 08:08] VITALS: BP 160/75; PULSE 65; TEMP 36.5; O2SAT 98
[2017-02-04] MEDS: AMLODIPINE BESYLATE 5 MG TAB PO SCH (08:10)
[2017-02-04] MEDS: ASPIRIN 81 MG ECTAB PO SCH (08:11)
[2017-02-04] MEDS: CALCIUM 600MG + VIT D 400 IU TAB PO SCH (08:11)
[2017-02-04] MEDS: CLOPIDOGREL BISULFATE 75 MG TAB PO SCH (08:11)
[2017-02-04] MEDS: METOPROLOL TARTRATE 50 MG TAB PO SCH (08:11)
[2017-02-04] MEDS: ATORVASTATIN 40 MG TAB PO SCH (08:11)
[2017-02-04] MEDS: PANTOprazole SOD 40 MG TAB PO SCH (08:11)
--- NOTE | 2017-02-04 09:40 | Progress Note ---
Internal Med Progress Note Date of Service: Feb 04, 2017. Provider Documentation: SUBJECTIVE: Seen and examined at bedside. States doing well today. Denies SOB Has intermittent productive cough Denies chest pain, palpitations, dizziness. Denies any bleeding issues-hematuria, blood in stools. OBJECTIVE: Vital Signs-as noted below Physical Exam: General Appearance:Moderately built and nourished, no apparent distress Head: normocephalic, Atraumatic Eyes: normal inspection, EOMI, PERRL Neck: supple, Trachea midline +Carotid bruit Respiratory/Chest: Decreased breath sounds, b/l few crackles Cardiovascular: S1, S2, No murmur Abdomen/GI:Soft, Non tender, Bowel sounds present Extremities/Musculoskelatal:normal inspection, Trace edema Neurologic/Psych: grossly no focal neurological deficits Skin: normal color, warm Lab data as noted below. ASSESSMENT & PLAN: NEW ONSET ATRIAL FIBRILLATION ? Paroxysmal Vs secondary to hypoxia secondary to pneumonia Currently in sinus S/P Cardizem ggt On Heparin drip Troponin X 3: Negative Appreciate cardiology input Labetalol at home is replaced by metoprolol tartrate 50 mg BID for rate control monitor electrolytes Nuclear stress test on 04/27 was normal Dobutamine stress echo done on 04/27:Nondiagnostic dobutamine stress echocardiogram due to inability to achieve target heart rate. On Aspirin and Plavix. No plans to be started on Coumadin per cardiology Needs a 2 week Zio monitor after discharge CAP / HYPOXIA CXR showed Consolidative infiltrate versus mass right midlung Received IV Vanco, Zosyn, levaquin and Dapto in the ER Continue Levaquin MRSA screen negative. Blood and Urine cultures: No growth to date CT chest : Right upper lobe consolidation. ? Underlying mass Former Smoker:quit in 2006 Needs 2 step prior to DC Appreciate Pulmonary input Currently saturating well on room air ANEMIA: Baseline Hb:9.8 >>>8.4>>>9.1 Likely dilutional secondary to IVF FOBT:pending H&H stable on Aspirin, Plavix and Heparin ggt Denies any bleeding issues ACUTE KEILA ON CKD III Cr: 1.2 on 12/12/16 Cr 2.2 >>>1.5>>>1.4 Cr levels continues to improve Lisinopril and HCTZ on hold for now Discontinued IVF Avoid nephrotoxic agents monitor renal function HYPOKALEMIA/HYPOMAGNESEMIA Monitor and replace ABNORMAL TSH Possibly related to acute illness TSH:low Free T4: normal Total T3:low Repeat Thyroid function tests in few weeks as outpatient DM II A1C:7.4 Continue Lantus Insulin coverage Monitor BS HTN Elevated Initially held Lisinopril and HCTZ due to KEILA Continue Norvasc 10mg Will resume lisinopril and hold HCTZ for now monitor BP PVD CAROTID ARTERY STENOSIS Continue Plavix/ Aspirin/ Statin DYSLIPIDEMIA Continue Lipitor DVT Px on Heparin Drip CODE STATUS FULL CODE Disposition: Plan to discharge home today Follow up with on 02/08/17 at 12:45pm at [facility] Follow up with Cardiology Fam Diaz PA-C in 2 weeks as advised Complete the antibiotic course as prescribed Seek immediate medical attention if your symptoms reoccur or worsen Your medication Hydrochlorothiazide is held secondary to acute kidney injury. Follow up with your primary care doctor to discuss about resuming the medication Get repeat CT chest in 6 weeks as outpatient as advised Get PFTs/Sleep study as outpatient as per your doctor's recommendations Get blood test Basic metabolic panel (in 1 week) and thyroid function test (4 weeks) as outpatient as advised Your video game repair technician recommended a 2 week Zio monitor after discharge which will be arrange by your video game repair technician PROCEDURES: CT CHEST: 1. There is dense airspace consolidation identified in the right upper and middle lobes. The appearance is typical for pneumonia. Underlying mass lesion would be impossible to exclude and radiographic follow-up to resolution is recommended. 2. Small right pleural effusion. Dependent right basilar opacities likely represent atelectasis. 3. The left lung is clear. 4. Cardiomegaly. 5. Mediastinal lymphadenopathy is nonspecific and likely on a reactive basis. 6. Additional findings as above. ECHO: * There is mild concentric left ventricular hypertrophy. * The left ventricular wall motion is normal. * Ejection Fraction = 55-60%. * Aortic valve sclerosis moderate, without significant aortic valvular stenosis. * There is moderate mitral annular calcification. * Diastolic dysfunction, Grade II (pseudonormalization pattern). Vital Signs: Date Time Temp Pulse Resp B/P (MAP) Pulse Ox O2 Delivery O2 Flow Rate FiO2 02/04/17 08:08 36.5 65 18 160/75 (103) 98 02/04/17 04:00 Room Air 02/04/17 03:45 37.3 84 16 160/63 (95) 91 Room Air 02/03/17 23:59 Room Air 02/03/17 23:49 36.9 83 20 149/54 (85) 93 Room Air 02/03/17 20:00 Room Air 02/03/17 19:35 37.2 94 20 167/73 (104) 92 Room Air 02/03/17 19:08 91 16 93 Room Air 02/03/17 16:19 87 Nasal Cannula 6.0 02/03/17 16:08 37.1 83 20 159/68 (98) 91 Room Air 02/03/17 15:48 86 16 93 Room Air 02/03/17 13:07 78 93 02/03/17 12:21 87 Nasal Cannula 6.0 02/03/17 11:02 37.0 81 20 145/66 (92) 93 Room Air Lab Results: Results Past 24 Hours Test 02/03/17 11:29 02/03/17 16:34 02/03/17 20:35 02/04/17 05:19 Range/Units Bedside Glucose 328 263 306 70-90 mg/dl Activated Partial Thromboplast Time 55.3 21.0-31.0 SECONDS Partial Thromboplastin Ratio 2.1 Sodium Level 139 136-145 mmol/L Potassium Level 4.0 3.5-5.1 mmol/L Chloride Level 104 98-107 mmol/L Carbon Dioxide Level 27 21-32 mmol/L Anion Gap 8.0 3-11 mmol/L Blood Urea Nitrogen 28 7-18 mg/dl Creatinine 1.40 0.60-1.20 mg/dl Est Creatinine Clear Calc Drug Dose 42.9 ml/min Estimated GFR () 43.4 Estimated GFR (Non- 37.4 BUN/Creatinine Ratio 19.6 10-20 Random Glucose 153 70-99 mg/dl Estimated Average Glucose 166 mg/dl Hemoglobin A1c 7.4 4.5-5.6 % Calcium Level 9.0 8.5-10.1 mg/dl Magnesium Level 1.8 1.8-2.4 mg/dl Test 02/04/17 06:57 Range/Units Bedside Glucose 162 70-90 mg/dl
--- NOTE | 2017-02-04 10:08 | Cardiology Follow-Up ---
Subjective General Date of Service: Feb 04, 2017. Chief Complaint: follow up AF Pt evaluation today including: conversation w/ patient, conversation w/ family , physical exam, chart review, lab review, review of studies, review of inpatient medication list History of Present Illness Patient seen and examined. at bedside. Feeling better. No chest pain. No palpitations. Dyspnea improved. Telemetry: Sinus in the upper 80's. No recurrence of atrial fibrillation. February 02, 2017 TTE Interpretation Summary ([facility], Dr. Singleton): There is mild concentric left ventricular hypertrophy. The left ventricular wall motion is normal. Ejection Fraction = 55-60%. Aortic valve sclerosis moderate, without significant aortic valvular stenosis. There is moderate mitral annular calcification. Diastolic dysfunction, Grade II (pseudonormalization pattern). Allergies Coded Allergies: No Known Allergies (Unverified , 02/01/17) Social History Smoking Status: Former Smoker Hx Tobacco Use In Past Year?: No Hx Alcohol Use - Type And Amou: No Hx Substance Use - Type And Am: No Problem List Medical Problems: (1) KEILA (acute kidney injury) Status: Acute (2) Fever Status: Acute (3) Generalized weakness Status: Acute (4) Hypomagnesemia Status: Acute (5) Pneumonia involving right lung Status: Acute (6) Post operative infected tooth socket Status: Acute (7) Post-operative infection Status: Acute (8) Rapid atrial fibrillation Status: Acute Physical Exam Vital Signs Last Vital Signs Documentation Date Time Temp Pulse Resp B/P (MAP) Pulse Ox O2 Delivery O2 Flow Rate FiO2 02/04/17 08:08 36.5 65 18 160/75 (103) 98 02/04/17 04:00 Room Air 02/03/17 16:19 6.0 Physical Exam Constitutional: Level of Distress: NAD, chronically ill Ambulation: ambulating normally Psychiatric: Mental Status: active & alert Orientation: to time, to place, to person Memory: recent memory normal, remote memory normal Head: normocephalic, atraumatic Eyes: Pupils: PERRLA Neck: supple, pertinent finding (Normal JVP) Lungs: Respiratory effort: no dyspnea Auscultation: no wheezing, deminished air movement, decreased breath sounds , pertinent finding (left basilar rhonchi) Cardiovascular: Heart Auscultation: RRR, no murmurs Peripheral Pulses: Dorsalis Pedis Pulse: decreased on the left, decreased on the right Abdomen: Bowel Sounds: normal Inspection & Palpation: soft Extremities: no edema Neurologic: Cranial Nerves: grossly intact Assessment and Plan Assessment and Plan 71 year old female admitted with community acquired pneumonia, complicated by acute on chronic kidney injury and atrial fibrillation with spontaneous conversion back to sinus while on diltiazem infusion. [id number] score of 5 for female sex, age > 65, DM, HTN, and PAD. Mild intermittent AM epistaxis noted , without other bleeding issues to this point. RECOMMENDATIONS/PLAN: Continue metoprolol, ASA, and clopidogrel. Note: ASA and clopidogrel prescribed secondary to bilateral lower extremity stents. Vivoluxo XT monitor x 14 days post discharge (office aware, will call patient to schedule as well as schedule hospital follow-up) If PAF observed on the ambulatory electrocardiogram would discontinue clopidogrel and initiation Coumadin anticoagulation as discussed. Laboratory Results Last 24 Hours Test 02/03/17 11:29 02/03/17 16:34 02/03/17 20:35 02/04/17 05:19 Bedside Glucose 328 mg/dl 263 mg/dl 306 mg/dl Activated Partial Thromboplast Time 55.3 SECONDS Partial Thromboplastin Ratio 2.1 Sodium Level 139 mmol/L Potassium Level 4.0 mmol/L Chloride Level 104 mmol/L Carbon Dioxide Level 27 mmol/L Anion Gap 8.0 mmol/L Blood Urea Nitrogen 28 mg/dl Creatinine 1.40 mg/dl Est Creatinine Clear Calc Drug Dose 42.9 ml/min Estimated GFR () 43.4 Estimated GFR (Non- 37.4 BUN/Creatinine Ratio 19.6 Random Glucose 153 mg/dl Estimated Average Glucose 166 mg/dl Hemoglobin A1c 7.4 % Calcium Level 9.0 mg/dl Magnesium Level 1.8 mg/dl Test 02/04/17 06:57 Bedside Glucose 162 mg/dl
[2017-02-04] MEDS ORDERED: LVQ750 PO (10:11)
[2017-02-04] MEDS ORDERED: METO50TA16 PO (10:11)
--- NOTE | 2017-02-04 10:16 | Discharge Summary ---
Discharge Summary Date of Service Feb 04, 2017. Discharge Summary Admission Date: Feb 01, 2017 at 20:05 Discharge Date: Feb 04, 2017 Discharge Disposition: Home Principal Diagnosis: Atrial Fibrillation, Pneumonia Procedures: CT CHEST: 1. There is dense airspace consolidation identified in the right upper and middle lobes. The appearance is typical for pneumonia. Underlying mass lesion would be impossible to exclude and radiographic follow-up to resolution is recommended. 2. Small right pleural effusion. Dependent right basilar opacities likely represent atelectasis. 3. The left lung is clear. 4. Cardiomegaly. 5. Mediastinal lymphadenopathy is nonspecific and likely on a reactive basis. 6. Additional findings as above. ECHO: * There is mild concentric left ventricular hypertrophy. * The left ventricular wall motion is normal. * Ejection Fraction = 55-60%. * Aortic valve sclerosis moderate, without significant aortic valvular stenosis. * There is moderate mitral annular calcification. * Diastolic dysfunction, Grade II (pseudonormalization pattern). Consultations: Cardiology, Pulmonology Pending Studies/Follow-Up: Follow up with on 02/08/17 at 12:45pm at [facility] Office Follow up with Cardiology Fam Diaz PA-C in 2 weeks as advised Complete the antibiotic course as prescribed Seek immediate medical attention if your symptoms reoccur or worsen Your medication Hydrochlorothiazide is held secondary to acute kidney injury. Follow up with your primary care doctor to discuss about resuming the medication Get repeat CT chest in 6 weeks as outpatient as advised Get PFTs/Sleep study as outpatient as per your doctor's recommendations Get blood test Basic metabolic panel (in 1 week) and thyroid function test (4 weeks) as outpatient as advised Your advisory services associate recommended a 2 week Zio monitor after discharge which will be arrange by your advisory services associate Medication Reconciliation New Medications: Levofloxacin (Levofloxacin) 750 Mg Tab 750 MG PO Q2D@1100 for 10 Days, #5 TAB Metoprolol Tartrate (Lopressor) (Lopressor) 50 Mg Tab 50 MG PO BID for 30 Days, #60 TAB 1 Refill Continued Medications: Acetaminophen (Tylenol) 325 Mg Tab 325 MG PO Q6 PRN for Pain, TAB Amlodipine (Norvasc) 10 Mg Tab 10 MG PO DAILY, TAB Aspirin (Aspir-81) 81 Mg Tab 1 TAB PO DAILY for 90 Days, #90 TAB 3 Refills Atorvastatin (Atorvastatin Calcium) 40 Mg Tab 40 MG PO DAILY, TAB Calcium Carbonate-Cholecalcife (Calcium 600 with Vitamin 600-400 mg-Unit) 1 Tab Tab 1 TAB PO BID Clopidogrel (Plavix) 75 Mg Tab 75 MG PO DAILY, TAB Insulin Aspart (Novolog) 100 Units/Ml Inj 10 UNITS SQ QDB Insulin Aspart (Novolog) 100 Units/Ml Inj UNITS PO UD 10 units at breakfast, 8 units at lunch and 12 unit at super Insulin Glargine (Lantus) 100 Unit/Ml Inj 50 UNITS SC HS, VIAL Lisinopril (Zestril) 40 Mg Tab 40 MG PO DAILY, TAB Pantoprazole (Protonix) 40 Mg Tab 40 MG PO DAILY, #30 TAB Discontinued Medications: Hydrochlorothiazide (Hctz) 25 Mg Tab 25 MG PO DAILY, TAB Labetalol (Normodyne) 200 Mg Tab 200 MG PO BID, TAB Admission Information HPI (per Admitting provider): 71 year old female with PMH of DM type 2, CKD stage 3, HTN, PVD, Carotid Stenosis presents to the Emergency Room with complaints of fever, chills that started about 4 days ago. Pt said that she has been feeling weak with no energy for the past few days. She said that she has been having a dry cough. she said that she has been having SOB on exertion. She also had some pain in her left leg where she had MRSA in her artery that is resolved now. She notice her urinary output seems to be low, especially since she has been drinking a lot of water. She denies any sick contact or any recent travelling. She denies any chest pain, palpitation, headache, diaphoresis , visual changes, neck pain, nausea, vomiting, abdominal pain, melena, hematochezia, numbness, weakness, lymphadenopathy, rash. She went to Atrial Fibrillation in the ER with HR in the 150 and was started on Cardizem drip. Physical Exam (per Admitting): General Appearance: WD/WN, no apparent distress Head: normocephalic, atraumatic Eyes: normal inspection, PERRL, EOMI ENT: normal ENT inspection, hearing grossly normal Neck: no JVD, + pertinent finding (B/L carotid Bruit) Respiratory/Chest: chest non-tender, no respiratory distress, no accessory muscle use Cardiovascular: no JVD, + irregularly irregular Abdomen/GI: normal bowel sounds, non tender, soft Back: no CVA tenderness, normal range of motion Extremities/Musculoskelatal: no calf tenderness Neurologic/Psych: alert, normal mood/affect, oriented x 3 Skin: warm/dry, no rash Hospital Course NEW ONSET ATRIAL FIBRILLATION ? Paroxysmal Vs secondary to hypoxia secondary to pneumonia Currently in sinus S/P Cardizem ggt On Heparin drip Troponin X 3: Negative Appreciate cardiology input Labetalol at home is replaced by metoprolol tartrate 50 mg BID for rate control monitor electrolytes Nuclear stress test on 04/27 was normal Dobutamine stress echo done on 04/27:Nondiagnostic dobutamine stress echocardiogram due to inability to achieve target heart rate. On Aspirin and Plavix. No plans to be started on Coumadin per cardiology Needs a 2 week Zio monitor after discharge CAP / HYPOXIA CXR showed Consolidative infiltrate versus mass right midlung Received IV Vanco, Zosyn, levaquin and Dapto in the ER Continue Levaquin MRSA screen negative. Blood and Urine cultures: No growth to date CT chest : Right upper lobe consolidation. ? Underlying mass Former Smoker:quit in 2006 Needs 2 step prior to DC Appreciate Pulmonary input Currently saturating well on room air ANEMIA: Baseline Hb:9.8 >>>8.4>>>9.1 Likely dilutional secondary to IVF FOBT:pending H&H stable on Aspirin, Plavix and Heparin ggt Denies any bleeding issues ACUTE KEILA ON CKD III Cr: 1.2 on 12/12/16 Cr 2.2 >>>1.5>>>1.4 Cr levels continues to improve Lisinopril and HCTZ on hold for now Discontinued IVF Avoid nephrotoxic agents monitor renal function HYPOKALEMIA/HYPOMAGNESEMIA Monitor and replace ABNORMAL TSH Possibly related to acute illness TSH:low Free T4: normal Total T3:low Repeat Thyroid function tests in few weeks as outpatient DM II A1C:7.4 Continue Lantus Insulin coverage Monitor BS HTN Elevated Initially held Lisinopril and HCTZ due to KEILA Continue Norvasc 10mg Will resume lisinopril and hold HCTZ for now monitor BP PVD CAROTID ARTERY STENOSIS Continue Plavix/ Aspirin/ Statin DYSLIPIDEMIA Continue Lipitor DVT Px on Heparin Drip CODE STATUS FULL CODE Disposition: Plan to discharge home today Follow up with on 02/08/17 at 12:45pm at [facility] Office Follow up with Cardiology Fam Diaz PA-C in 2 weeks as advised Complete the antibiotic course as prescribed Seek immediate medical attention if your symptoms reoccur or worsen Your medication Hydrochlorothiazide is held secondary to acute kidney injury. Follow up with your primary care doctor to discuss about resuming the medication Get repeat CT chest in 6 weeks as outpatient as advised Get PFTs/Sleep study as outpatient as per your doctor's recommendations Get blood test Basic metabolic panel (in 1 week) and thyroid function test (4 weeks) as outpatient as advised Your advisory services associate recommended a 2 week Zio monitor after discharge which will be arrange by your advisory services associate PROCEDURES: CT CHEST: 1. There is dense airspace consolidation identified in the right upper and middle lobes. The appearance is typical for pneumonia. Underlying mass lesion would be impossible to exclude and radiographic follow-up to resolution is recommended. 2. Small right pleural effusion. Dependent right basilar opacities likely represent atelectasis. 3. The left lung is clear. 4. Cardiomegaly. 5. Mediastinal lymphadenopathy is nonspecific and likely on a reactive basis. 6. Additional findings as above. ECHO: * There is mild concentric left ventricular hypertrophy. * The left ventricular wall motion is normal. * Ejection Fraction = 55-60%. * Aortic valve sclerosis moderate, without significant aortic valvular stenosis. * There is moderate mitral annular calcification. * Diastolic dysfunction, Grade II (pseudonormalization pattern). Total time spent on discharge = 38 minutes This includes examination of the patient, discharge planning, medication reconciliation, and communication with other providers. Discharge Instructions Discharge Instructions Date of Service Feb 04, 2017. Admission Reason for Admission: Atrial Fibrillation, Pneumonia Discharge Discharge Diagnosis / Problem: Atrial Fibrillation, Pneumonia Discharge Goals Goal(s): Decrease discomfort, Improve function Activity Recommendations Activity Limitations: resume your previous activity Exercise/Sports Limitations: as tolerated . Instructions / Follow-Up Instructions / Follow-Up Follow up with on 02/08/17 at 12:45pm at [facility] Office Follow up with Cardiology Fam Diaz PA-C in 2 weeks as advised Complete the antibiotic course as prescribed Seek immediate medical attention if your symptoms reoccur or worsen Your medication Hydrochlorothiazide is held secondary to acute kidney injury. Follow up with your primary care doctor to discuss about resuming the medication Get repeat CT chest in 6 weeks as outpatient as advised Get PFTs/Sleep study as outpatient as per your doctor's recommendations Get blood test Basic metabolic panel (in 1 week) and thyroid function test (4 weeks) as outpatient as advised Your advisory services associate recommended a 2 week Zio monitor after discharge which will be arrange by your advisory services associate Current Hospital Diet Patient's current hospital diet: Low Sodium Diet (2gm Na), AHA Diet (Heart Healthy), Diabetes Type 2 Diet Discharge Diet Recommended Diet: AHA Diet (Heart Healthy), Low Sodium Diet (2gm Na), Diabetes Type 2 Diet Pending Studies Studies pending at discharge: no Laboratory Results Hemoglobin A1c Test 02/04/17 05:19 Range/Units Estimated Average Glucose 166 mg/dl Hemoglobin A1c 7.4 H 4.5-5.6 % Medical Emergencies . Who to Call and When: Medical Emergencies: If at any time you feel your situation is an emergency, please call 911 immediately. . Non-Emergent Contact Non-Emergency issues call your: Primary Care Provider, Buyer Assistant Call Non-Emergent contact if: you have a fever, your pain is not controlled, your pain is worsening, your pain is unusual for you, you have any medication questions If your have cough, shortness of breath, palpitations . "Provider Documentation" section prepared by Marcel Lynn. . VTE Core Measure Inpt VTE Proph given/why not?: Unfractionated heparin SQ
[2017-02-04 11:09] VITALS: Ht 167.6 cm; Wt 95.5 kg
[2017-02-04 11:10] VITALS: BP 160/75; PULSE 65; TEMP 36.5; O2SAT 98
[2017-02-05] MEDS ORDERED: LEVOFLOXACIN 750 MG TAB PO SCH (11:00)
[2017-02-05] MEDS ORDERED: PPD CHECK SCH (14:30)
== END 2017-02-04 12:00 | disposition home or self-care (01) | DRG 682 ==
LOC: C.EDB 16:28 → C.2T 20:05 → ENRESERV 20:22
PROVIDERS: ADMIT Internal Medicine; ATTEND Internal Medicine
DX: N17.9 Acute kidney failure, unspecified (principal); J18.9 Pneumonia, unspecified organism; I48.91 Unspecified atrial fibrillation; R09.02 Hypoxemia; D64.9 Anemia, unspecified; E87.6 Hypokalemia; E83.42 Hypomagnesemia; R91.8 Other nonspecific abnormal finding of lung field; R94.6 Abnormal results of thyroid function studies; E11.9 Type 2 diabetes mellitus without complications; I13.10 Hypertensive heart and chronic kidney disease without heart failure, with stage 1 through stage 4 chronic kidney disease, or unspecified chronic kidney disease; N18.3 Chronic kidney disease, stage 3 (moderate); I73.9 Peripheral vascular disease, unspecified; I65.29 Occlusion and stenosis of unspecified carotid artery; E78.5 Hyperlipidemia, unspecified; Z51.81 Encounter for therapeutic drug level monitoring; Z79.899 Other long term (current) drug therapy; Z79.4 Long term (current) use of insulin; Z79.82 Long term (current) use of aspirin; Z79.02 Long term (current) use of antithrombotics/antiplatelets; Z87.01 Personal history of pneumonia (recurrent); Z87.891 Personal history of nicotine dependence; Z83.3 Family history of diabetes mellitus; Z82.49 Family history of ischemic heart disease and other diseases of the circulatory system

== ENCOUNTER → 2017-03-28 | Outpatient (CLI) | payer OTHER ==
[~2017-03-28] MED LIST changes: +ACET-1311 PO; +CALC-585 PO; -CALC500C70 PO; -HYDR25TA4 PO; +INSDGI SC; -INSUINJ4 SQ; -LABE1TAB28 PO; -LORA0.5T12 PO; +LPT40 PO; +LVQ750 PO; +METO50TA16 PO; +NVLG PO; +NVLG SQ; -NVLGI SC; -ROSU20TA PO
--- NOTE | 2017-03-28 14:06 | MAMMOGRAPHY REPORT ---
BILATERAL DIGITAL SCREENING MAMMOGRAM WITH CAD: 03/28/2017 CLINICAL HISTORY: Routine screening. Patient has no complaints. TECHNIQUE: Current study was also evaluated with a Computer Aided Detection (CAD) system. Bilateral CC and MLO views were obtained. COMPARISON: Comparison is made to exams dated: 02/17/2016 mammogram, 10/13/2015 ultrasound, 10/13/2015 tonie mogram, 02/21/2015 mammogram, 02/21/2015 ultrasound, and 02/11/2015 mammogram - [facility]. BREAST COMPOSITION: There are scattered areas of fibroglandular density in both breasts. FINDINGS: No suspicious masses, calcifications, or areas of architectural distortion are noted in ei ther breast. There has been no significant interval change compared to prior exams. IMPRESSION: ACR BI-RADS CATEGORY 1: NEGATIVE There is no mammographic evidence of malignancy. A 1 year screening mammogram is recommended. The pa tient will receive written notification of the results. Approximately 10% of breast cancers are not detected with mammography. A negative mammographic report should not delay biopsy if a clinically suggestive mass is present. Rhonda Lao M.D. /:03/28/2017 11:51:32 Electrical Engineering Intern: Vilma GIPSONR, M, [facility] letter sent: Normal 1/2 BI-RADS Code: ACR BI-RADS Category 1: Negative
== END | disposition home or self-care (01) ==
LOC: C.MAMM 11:08
PROVIDERS: ATTEND Internal Medicine
DX: Z12.31 Encounter for screening mammogram for malignant neoplasm of breast (principal)

== ENCOUNTER 2017-08-29 17:45 | Emergency (ER) | payer OTHER ==
[~2017-08-29] VITALS: Ht 167.6 cm; Wt 104.3 kg
[~2017-08-29 17:45] MED LIST changes: +PANT1TAB3 PO; -PANT1TAB48 PO
[2017-08-29] MEDS ORDERED: SODIUM CHLORIDE 0.9% 1000ML 1,000 ML IV STA (18:03)
[2017-08-29] MEDS ORDERED: DICL1GEL12 (18:04)
[2017-08-29] MEDS ORDERED: NVLNI (18:04)
[2017-08-29] MEDS ORDERED: GLUC-221 (18:04)
[2017-08-29] MEDS ORDERED: INSP (18:04)
[2017-08-29] MEDS ORDERED: NVLNI SQ (18:07)
[2017-08-29 18:09] VITALS: O2SAT 92
[2017-08-29] MEDS ORDERED: INSUINJ20 SQ (18:10)
[2017-08-29 18:15] VITALS: TEMP 36.6; Ht 167.6 cm; Wt 104.3 kg
[2017-08-29] MEDS ORDERED: DiphenhydrAMINE HCL 50 MG/ML VIAL IV STA (18:21)
[2017-08-29] MEDS ORDERED: PROCHLORPERAZINE 5 MG/ML 2 ML VIAL IV STA (18:21)
--- NOTE | 2017-08-29 18:50 | DIAGNOSTIC IMAGING REPORT ---
CHEST ONE VIEW PORTABLE HISTORY: EVALUATE WEAKNESS COMPARISON: Chest 02/01/2017. FINDINGS: The heart is mildly enlarged. Mild elevation the right hemidiaphragm. No focal lung consolidations to suggest pneumonia. No evidence for pulmonary edema. No pleural effusions. No pneumothorax. IMPRESSION: Stable mild cardiomegaly. Otherwise, no acute process within the chest. Electronically signed by: Reinier Kirk M.D. 08/29/2017 6:48 PM Dictated Date/Time: 08/29/2017 6:48 PM
[2017-08-29 19:14] LABS: BASO % 0.3 %; BASO ABS # 0.02 K/uL (0-0.2); EOS % 0.2 %; EOS ABS # 0.01 K/uL (0-0.5); HEMATOCRIT 37.6 % (37-47); HEMOGLOBIN 11.9 g/dL (12.0-16.0); IG# 0.01 K/uL (0.00-0.02); LYMPH % 6.6 %; MEAN CELL VOLUME 91.7 fL (80-100); MEAN CORPUSCULAR HGB CONC 31.6 g/dl (32-36); MEAN PLATELET VOLUME 10.2 fL (7.4-10.4); MONO % 0.5 %; MONO ABS # 0.03 K/uL (0.11-0.59); NEUT % 92.2 %; NEUT ABS # 5.61 K/uL (1.4-6.5); PLATELET COUNT 203 K/uL (130-400); RED CELL DISTRIBUTION WIDTH CV 13.1 % (11.5-14.5); WHITE BLOOD COUNT 6.08 K/uL (4.8-10.8)
[2017-08-29 19:29] LABS: PTT PATIENT 24.6 SECONDS (21.0-31.0)
[2017-08-29 19:30] LABS: ALBUMIN 3.3 gm/dl (3.4-5.0); ALT/SGPT 28 U/L (12-78); BLOOD UREA NITROGEN 17 mg/dl (7-18); CALCIUM 8.5 mg/dl (8.5-10.1); CARBON DIOXIDE 24 mmol/L (21-32); CREATININE 1.05 mg/dl (0.60-1.20); GLUCOSE 212 mg/dl (70-99); POTASSIUM 3.9 mmol/L (3.5-5.1); SODIUM 140 mmol/L (136-145)
[2017-08-29 19:41] LABS: ALKALINE PHOSPHATASE 142 U/L (45-117); AST/SGOT 20 U/L (15-37); CKMB 3.8 ng/ml (0.5-3.6); TOTAL PROTEIN 7.4 gm/dl (6.4-8.2)
[2017-08-29 21:21] VITALS: BP 164/72; PULSE 74; O2SAT 92
--- NOTE | 2017-08-29 23:07 | EMERGENCY ROOM VISIT NOTE ---
History Report prepared by Ilya: Yeison Valles Under the Supervision of: Dr. Brandyn Higginbotham M.D. First contact with patient: 18:02 Chief Complaint: CARDIAC ASSESSMENT Stated Complaint: AFIB History of Present Illness The patient is a 71 year old female who presents to the Emergency Room for now resolved atrial fibrillation that occurred at 1620, two hours prior to arrival. The patient was at the surgery center in [facility] having surgery on her left hand. When the patient came out of anesthesia she vomited and was given 8 mg of Zofran. She then spontaneously went into Atrial Fibrillation. She was in normal sinus rhythm at 1600, and went into A-fib at 1620. She was given Reglan and 2.5 mg of Lopressor at 1620. At 1627, following Lopressor her heart rate dropped to 24 beats per minute and she was given a 500 saline bolus. She then returned to sinus rhythm. The patient's noted a previous episode where the patient was in the Emergency Department for pneumonia and had a sudden episode of atrial fibrillation. The patient denies and associated headache, fevers, chills, diaphoresis, visual changes, neck pain, chest pain, breathing difficulties, abdominal pain, back pain, melena, hematochezia, urinary symptoms , numbness, weakness, lymphadenopathy, rash, or other complaints. Source of History: patient, spouse/significant other Onset: 2 hours CHANGE MANAGEMENT LEAD Position: chest, other (Cardiovascular) Quality: other (Atrial Fibrillation) Timing: resolved Associated Symptoms: + nausea, + vomiting, No chest pain Review of Systems See HPI for pertinent positives and negatives. A total of ten systems were reviewed and were otherwise negative. Past Medical & Surgical Medical Problems: (1) Atrial fibrillation (2) Diabetes (3) Hypertension (4) Pneumonia Family History Diabetes mellitus FHx: cancer FHx: heart disease Hypertension Social History Smoking Status: Former Smoker Drug Use: none Marital Status: Housing Status: lives with family Current/Historical Medications Scheduled Amlodipine (Norvasc), 10 MG PO DAILY Aspirin (Aspir-81), 1 TAB PO DAILY Atorvastatin (Lipitor), 40 MG PO DAILY Calcium Carbonate-Cholecalcife (Calcium 600 with Vitamin 600-400 mg-Unit), 1 TAB PO BID Clopidogrel (Plavix), 75 MG PO DAILY Lisinopril (Zestril), 40 MG PO DAILY Metoprolol Tartrate (Lopressor) (Lopressor), 50 MG PO BID Pantoprazole (Protonix), 40 MG PO DAILY Scheduled PRN Acetaminophen (Tylenol), 325 MG PO Q6 PRN for Pain Miscellaneous Medications Diclofenac Sodium (Topical) (Voltaren 1% Top Gel) Glucostix Blood Test Strips (TE2uch Ultra Blue) Insulin Human Regular (Novolin R) Insulin Isophane (Human) (Novolin N U-100), 20 UNITS SQ Allergies Uncoded Allergies: TAPE (Allergy, Unknown, uknown, 08/29/17) Physical Exam Vital Signs Date Time Temp Pulse Resp B/P (MAP) Pulse Ox O2 Delivery O2 Flow Rate FiO2 08/29/17 21:21 74 16 164/72 92 08/29/17 19:02 74 08/29/17 18:51 73 18 158/64 96 Nasal Cannula 3.0 08/29/17 18:15 92 Room Air 08/29/17 18:15 36.6 75 13 151/65 92 Room Air 08/29/17 18:09 92 Room Air 08/29/17 18:09 92 Room Air Physical Exam GENERAL: Awake, alert, actively vomiting. HENT: Normocephalic, atraumatic. Oropharynx unremarkable. EYES: Normal conjunctiva. Sclera non-icteric. NECK: Supple. No nuchal rigidity. FROM. No JVD. RESPIRATORY: Clear to auscultation. CARDIAC: Regular rate, normal rhythm. Extremities warm and well perfused. Pulses equal. ABDOMEN: Soft, non-distended. No tenderness to palpation. No rebound or guarding. No masses. RECTAL: Deferred. MUSCULOSKELETAL: There is a surgical splint on the let hand. Chest examination reveals no tenderness. The back is symmetrical on inspection without obvious abnormality. There is no CVA tenderness to palpation. No joint edema. LOWER EXTREMITIES: Calves are equal size bilaterally and non-tender. No edema. No discoloration. NEURO: Normal sensorium. No sensory or motor deficits noted. SKIN: No rash or jaundice noted. Medical Decision & Procedures ER Provider Diagnostic Interpretation: Radiology results as stated below per my review and radiologist interpretation: CHEST ONE VIEW PORTABLE HISTORY: EVALUATE WEAKNESS COMPARISON: Chest 02/01/2017. FINDINGS: The heart is mildly enlarged. Mild elevation the right hemidiaphragm. No focal lung consolidations to suggest pneumonia. No evidence for pulmonary edema. No pleural effusions. No pneumothorax. IMPRESSION: Stable mild cardiomegaly. Otherwise, no acute process within the chest. Electronically signed by: Reinier Kirk M.D. 08/29/2017 6:48 PM Dictated Date/Time: 08/29/2017 6:48 PM Laboratory Results 08/29/17 18:50 Red Blood Count 4.10, Mean Corpuscular Volume 91.7, Mean Corpuscular Hemoglobin 29.0, Mean Corpuscular Hemoglobin Concent 31.6, Mean Platelet Volume 10.2, Neutrophils (%) (Auto) 92.2, Lymphocytes (%) (Auto) 6.6, Monocytes (%) (Auto) 0.5, Eosinophils (%) (Auto) 0.2, Basophils (%) (Auto) 0.3, Neutrophils # (Auto) 5.61, Lymphocytes # (Auto) 0.40, Monocytes # (Auto) 0.03, Eosinophils # (Auto) 0.01, Basophils # (Auto) 0.02 08/29/17 18:50 Test 08/29/17 18:50 White Blood Count 6.08 K/uL (4.8-10.8) Red Blood Count 4.10 M/uL (4.2-5.4) Hemoglobin 11.9 g/dL (12.0-16.0) Hematocrit 37.6 % (37-47) Mean Corpuscular Volume 91.7 fL (80-100) Mean Corpuscular Hemoglobin 29.0 pg (25-34) Mean Corpuscular Hemoglobin Concent 31.6 g/dl (32-36) Platelet Count 203 K/uL (130-400) Mean Platelet Volume 10.2 fL (7.4-10.4) Neutrophils (%) (Auto) 92.2 % Lymphocytes (%) (Auto) 6.6 % Monocytes (%) (Auto) 0.5 % Eosinophils (%) (Auto) 0.2 % Basophils (%) (Auto) 0.3 % Neutrophils # (Auto) 5.61 K/uL (1.4-6.5) Lymphocytes # (Auto) 0.40 K/uL (1.2-3.4) Monocytes # (Auto) 0.03 K/uL (0.11-0.59) Eosinophils # (Auto) 0.01 K/uL (0-0.5) Basophils # (Auto) 0.02 K/uL (0-0.2) RDW Standard Deviation 44.0 fL (36.4-46.3) RDW Coefficient of Variation 13.1 % (11.5-14.5) Immature Granulocyte % (Auto) 0.2 % Immature Granulocyte # (Auto) 0.01 K/uL (0.00-0.02) Prothrombin Time 10.2 SECONDS (9.0-12.0) Prothromb Time International Ratio 1.0 (0.9-1.1) Activated Partial Thromboplast Time 24.6 SECONDS (21.0-31.0) Partial Thromboplastin Ratio 0.9 Anion Gap 10.0 mmol/L (3-11) Est Creatinine Clear Calc Drug Dose 59.1 ml/min Estimated GFR () 61.4 Estimated GFR (Non- 53.0 BUN/Creatinine Ratio 16.5 (10-20) Calcium Level 8.5 mg/dl (8.5-10.1) Magnesium Level 2.1 mg/dl (1.8-2.4) Total Bilirubin 0.3 mg/dl (0.2-1) Direct Bilirubin < 0.1 mg/dl (0-0.2) Aspartate Amino Transf (AST/SGOT) 20 U/L (15-37) Alanine Aminotransferase (ALT/SGPT) 28 U/L (12-78) Alkaline Phosphatase 142 U/L (45-117) Total Creatine Kinase 154 U/L (26-192) Creatine Kinase MB 3.8 ng/ml (0.5-3.6) Creatine Kinase MB Ratio 2.5 (0-3.0) Troponin I < 0.015 ng/ml (0-0.045) Total Protein 7.4 gm/dl (6.4-8.2) Albumin 3.3 gm/dl (3.4-5.0) Thyroid Stimulating Hormone (TSH) 0.751 uIu/ml (0.300-4.500) Laboratory results reviewed by me Medications Administered Medications (Trade) Dose Ordered Sig/Dayron Route Start Time Stop Time Status Last Admin Dose Admin Sodium Chloride 1,000 ml @ 125 mls/hr Q8H STAT IV 08/29/17 18:03 1/18/18 22:28 DC 08/29/17 18:29 125 MLS/HR Prochlorperazine Edisylate (Compazine Inj) 5 mg NOW STAT IV 08/29/17 18:21 08/29/17 18:22 DC 08/29/17 18:28 5 MG Diphenhydramine HCl (Benadryl Inj) 12.5 mg NOW STAT IV 08/29/17 18:21 18 18:22 DC 08/29/17 18:28 12.5 MG ECG Indication: other (A-fib) Rate (beats per minute): 70 Rhythm: normal sinus Findings: 1st degree AV block, no acute ischemic change, no ectopy Change: Patient's Electrocardiogram interpreted by me. ED Course 1807: The patient was evaluated in room C5. A complete history and physical exam was performed. 1802: Ordered Sodium Chloride 1000 mL @ 125 mL/hr IV. 1820: Ordered Compazine Inj 5 mg IV, Benadryl 12.5 mg IV. 1946: I checked on the patient at this time. 2028: I discussed the case with Dr. Baron - Cardiology at this time. He wants to have the patient call into the clinic tomorrow for an appointment. 2044: I reevaluated the patient. Discussed results and discharge instructions: She verbalized understanding and agreement. The patient is ready for discharge. Medical Decision Prior records/ancillary studies reviewed. Triage Nursing notes reviewed and agree them. Additional history obtained from the family. The patient's history was concerning for paroxysmal atrial fibrillation, postoperative vomiting, bradycardia. Differential diagnosis: Etiologies such as postoperative vomiting, vasovagal event, electrolyte abnormality, cardiac dysrhythmia, thyroid dysfunction, pulmonary embolism, infection, gastrointestinal, as well as others were entertained. Physical examination: Benign as above. ER treatment provided: Cardiac monitoring. Normal saline hydration IV Compazine IV Benadryl On reassessment the patient felt better. Diagnostic interpretation by me: The electrocardiogram was negative for pathologic change. The labs revealed an unremarkable CBC and chemistry panel. Troponin negative. CK-MB is borderline. Total CK normal. Imaging studies: Chest x-ray as above. Consultation: A consultation was placed with the scene equine breeder, Dr. Baron. The case was discussed and diagnostics were reviewed. He recommended follow-up in the clinic. The patient had an episode of postoperative paroxysmal A. fib. This was resolved after IV Lopressor and then a bradycardic event that sounds like she vagaled. The patient was observed for several hours. She did very well. She was mildly hyperglycemic. She was able to tolerate oral intake. I discussed conservative management. By the evaluation outlined above emergent etiologies such as electrolyte abnormality, thyroid dysfunction, pulmonary embolism, infection, as well as others were deemed relatively unlikely. The patient and were informed about the findings as listed above. All questions were answered and they were pleased with the treatment. Return instructions were outlined and the patient was discharged in stable condition. Outpatient prescription management: No change Referral: The patient was referred back to cardiology and her primary care physician for follow-up for a recheck of the current condition. Consults Time Called: 2024 Consulting Physician: Dr. Baron - Cariology Returned Call: 2028 I discussed the case with Dr. Baron - Cardiology at this time. He wants to have the patient call into the clinic tomorrow for an appointment. Impression Primary Impression: Paroxysmal A-fib Additional Impression: Postoperative vomiting Scribe Attestation The scribe's documentation has been prepared under my direction and personally reviewed by me in its entirety. I confirm that the note above accurately reflects all work, treatment, procedures, and medical decision making performed by me. Departure Information Dispostion Home / Self-Care Referrals Jose C Roth D.O. (PCP) Forms IMPORTANT VISIT INFORMATION Patient Instructions [facility] Additional Instructions Eat your regular diet this evening. Take current medications. Follow-up instructions given to you by anesthesia and orthopedic surgery. Call Dr. Singleton's office tomorrow for a follow-up appointment. Tell the secretary to the vice president that you were in the Emergency Room and Dr. Baron was aware and wants you to have a follow-up next week. Problem Qualifiers
== END 2017-08-29 21:21 | disposition home or self-care (01) ==
LOC: EDBD 17:45 → C.EDC 17:46
DX: I48.0 Paroxysmal atrial fibrillation (principal); Z98.890 Other specified postprocedural states; R11.2 Nausea with vomiting, unspecified; Z87.01 Personal history of pneumonia (recurrent); E11.65 Type 2 diabetes mellitus with hyperglycemia; I10 Essential (primary) hypertension; Z83.3 Family history of diabetes mellitus; Z82.49 Family history of ischemic heart disease and other diseases of the circulatory system; Z87.891 Personal history of nicotine dependence; Z79.82 Long term (current) use of aspirin; Z79.01 Long term (current) use of anticoagulants; Z79.899 Other long term (current) drug therapy

== ENCOUNTER → 2018-04-03 | Outpatient (CLI) | payer OTHER ==
[~2018-04-03] MED LIST changes: -AMLO-114 PO; +AMLO10TA3 PO; +DICL1GEL12; +GLUC-221; -INSDGI SC; +INSP; +INSUINJ20 SQ; -LVQ750 PO; -NVLG PO; -NVLG SQ
--- NOTE | 2018-04-04 14:29 | MAMMOGRAPHY REPORT ---
BILATERAL DIGITAL SCREENING MAMMOGRAM TOMOSYNTHESIS WITH CAD: 04/03/2018 CLINICAL HISTORY: Routine screening. TECHNIQUE: Breast tomosynthesis in addition to standard 2D mammography was performed. Current study w as also evaluated with a Computer Aided Detection (CAD) system. COMPARISON: Comparison is made to exams dated: 03/28/2017 mammogram, 02/17/2016 mammogram, 10/13/2015 tonie mogram, 02/11/2015 mammogram, 02/01/2014 mammogram, and 01/29/2013 mammogram - [facility] er. BREAST COMPOSITION: There are scattered areas of fibroglandular density in both breasts. FINDINGS: No suspicious masses, calcifications, or areas of architectural distortion are noted in either breast . There has been no significant interval change compared to prior exams. IMPRESSION: ACR BI-RADS CATEGORY 1: NEGATIVE There is no mammographic evidence of malignancy. A 1 year screening mammogram is recommended.( 019) The patient will receive written notification of the results. Some breast cancers are not detected with mammography. A negative mammographic report should not abdi y biopsy if a clinically suggestive mass is present. Rhonda Lao M.D. ah/:04/03/2018 16:39:23 Child Center Assistant: RT Dakotah(Evert)(M), [facility] letter sent: Normal 1/2 BI-RADS Code: ACR BI-RADS Category 1: Negative
== END | disposition home or self-care (01) ==
LOC: C.MAMM 09:20
PROVIDERS: ATTEND Internal Medicine
DX: Z12.31 Encounter for screening mammogram for malignant neoplasm of breast (principal)